=== PATIENT | male | born 1985 | race American Indian/Alaskan Native ===

== ENCOUNTER 2017-05-07 15:37 | Inpatient (IN) | payer MEDICAID, OTHER ==
[2017-05-07] MEDS ORDERED: Sodium Chloride 0.9% 1,000 ML IV ONE (16:23)
[2017-05-07] MEDS ORDERED: Sodium Chloride 0.9% 1,000 ML ONE (16:33)
[2017-05-07] MEDS ORDERED: Pantoprazole 80 MG in Sodium Chloride 0.9% 100 ML IVP SCH (16:45)
--- NOTE | 2017-05-07 16:45 | C.PDOC ---
History Of Present Illness 31 y/o male presents to ED sent by PMD for low hemoglobin of 7.4 and for evaluation of blood in stool for 2 days. Patient also complaints of dizziness and states he doesn't not feel like himself. Patient reports stomach problems and denies fever, chills, nausea, vomiting, diarrhea or any other complaints at this time. Time Seen by Provider: 05/07/17 16:22 Chief Complaint (Nursing): Abnormal Labs History Per: Patient History/Exam Limitations: no limitations Onset/Duration Of Symptoms: Days Current Symptoms Are (Timing): Still Present Severity: Mild Reports Recently: Treated By A Physician Past Medical History Reviewed: Historical Data, Nursing Documentation, Vital Signs Vital Signs: Last Vital Signs Temp 98.5 F 05/07/17 15:52 Pulse 72 05/07/17 15:52 Resp 20 05/07/17 15:52 BP 135/94 H 05/07/17 15:52 Pulse Ox 100 05/07/17 18:18 - Medical History PMH: No Chronic Diseases Surgical History: No Surg Hx Family History: States: No Known Family Hx - Social History Hx Alcohol Use: No Hx Substance Use: No - Immunization History Hx Tetanus Toxoid Vaccination: No Hx Influenza Vaccination: No Hx Pneumococcal Vaccination: No Review Of Systems Except As Marked, All Systems Reviewed And Found Negative. Constitutional: Negative for: Fever, Chills Gastrointestinal: Positive for: Hematochezia. Negative for: Nausea, Vomiting, Diarrhea Skin: Negative for: Rash Neurological: Positive for: Dizziness Physical Exam - Physical Exam Appears: Non-toxic, No Acute Distress Skin: Normal Color, Warm, No Pale, No Rash Head: Atraumatic Eye(s): bilateral: Normal Inspection Oral Mucosa: Moist Neck: Supple Chest: Symmetrical Cardiovascular: Rhythm Regular Respiratory: Normal Breath Sounds, No Rales, No Rhonchi, No Wheezing Gastrointestinal/Abdominal: Soft, No Tenderness, No Guarding, No Rebound Rectal: Heme Positive, Maroon Stool, No Hemorrhoids Neurological/Psych: Oriented x3, Normal Speech ED Course And Treatment - Laboratory Results Result Diagrams: 05/07/17 17:11 05/07/17 17:11 Lab Interpretation: Abnormal ECG: Interpreted By Me ECG Rhythm: Sinus Rhythm ECG Interpretation: No Acute Changes Rate From EC O2 Sat by Pulse Oximetry: 100 (RA) Pulse Ox Interpretation: Normal Progress Note: Treated with IVF NSS, Protonics and protonics drip Reassessment Condition: Unchanged - Physician Consult Information Physician Contacted: Davin Curran Outcome Of Conversation: admit Medical Decision Making Medical Decision Making: Plan: * labs * Protonix drip Disposition Discussed With Dr.: Davin Curran Doctor Will See Patient In The: Hospital - Disposition Disposition: HOSPITALIZED Disposition Time: 18:00 Condition: STABLE Forms: [facility] (Nepali) - POA Present On Arrival: None - Clinical Impression Clinical Impression: Anemia, GI bleeding - Scribe Statement The provider has reviewed the documentation as recorded by the Scribe Joycelyn Herrera All medical record entries made by the Scribe were at my direction and personally dictated by me. I have reviewed the chart and agree that the record accurately reflects my personal performance of the history, physical exam, medical decision making, and the department course for this patient. I have also personally directed, reviewed, and agree with the discharge instructions and disposition. Decision To Admit - Pt Status Changed To: Hospital Disposition Of: Inpatient - Admit Certification Admit to Inpatient:: After my assessment, the patient will require hospitalization for at least two midnights. This is because of the severity of symptoms shown, intensity of services needed, and/or the medical risk in this patient being treated as an outpatient. - InPatient: Physician Admission Certification: I certify that this patient requires 2 or more midnights of care for the following reason:: Anemia. Dizziness. GI Bleeding - . Bed Request Type: Regular Admitting Physician: Davin Curran Patient Diagnosis: Anemia, GI bleeding
[2017-05-07 17:21] LABS: BASO # 0.1 K/uL (0.0-0.2); BASO % 0.7 % (0.0-2.0); EOS # 0.2 K/uL (0.0-0.7); EOS % 3.2 % (0.0-4.0); HEMOGLOBIN 9.4 g/dL (12.0-18.0); LYMPH # 1.3 K/uL (1.0-4.3); MEAN CORPUSCULAR HEMOGLOBIN 30.3 pg (27.0-31.0); MEAN PLATELET VOLUME 8.4 fL (7.2-11.7); MONO # 0.9 K/uL (0.0-0.8); MONO % 11.8 % (0.0-10.0); NEUT % 67.3 % (50.0-75.0); NRBC % 0.1 % (0.0-2.0); RBC 3.12 Mil/uL (4.40-5.90); RED CELL DISTRIBUTION WIDTH 13.8 % (11.5-14.5); WHITE BLOOD COUNT 7.4 K/uL (4.8-10.8)
[2017-05-07 17:27] LABS: INR 1.2
[2017-05-07 17:34] LABS: URINE BACTERIA RARE (<OCC); URINE BILIRUBIN NEGATIVE (NEGATIVE); URINE BLOOD NEGATIVE (NEGATIVE); URINE CLARITY Clear (Clear); URINE COLOR Yellow (YELLOW); URINE GLUCOSE (UA) NORMAL (Normal); URINE LEUKOCYTE ESTERASE NEG Leu/uL (Negative); URINE NITRATE NEGATIVE (NEGATIVE); URINE PROTEIN NEGATIVE (NEGATIVE); URINE UROBILINOGEN NORMAL mg/dL (0.2-1.0)
[2017-05-07 17:53] LABS: ALBUMIN 3.7 g/dL (3.5-5.0)
[2017-05-07 17:55] LABS: GFR AFRICAN-AMERICAN > 60; GFR NON-AFRICAN AMERICAN > 60
[2017-05-07 17:56] LABS: ALB/GLOB RATIO 1.6 (1.0-2.1); ALT/SGPT 30 U/L (21-72); AST/SGOT 23 U/L (17-59); BLOOD UREA NITROGEN 15 mg/dL (9-20); CALCIUM 8.4 mg/dl (8.6-10.4)
[2017-05-07] MEDS: Pantoprazole 80 MG in Sodium Chloride 0.9% 100 ML IVPB SCH (18:11)
[2017-05-07] MEDS ORDERED: Sodium Chloride 0.9% 1,000 ML IV SCH (18:45)
--- NOTE | 2017-05-07 19:58 | CP.PCM.HP ---
<Orlando Frances - Last Filed: 05/07/17 20:06> History of Present Illness - History of Present Illness History of Present Illness: PGY-1 H&P for Dr. Curran This is a 31 year old male with no significant PMHx who presents after being sent by his PMD Dr. Nima Pritchard for evaluation of new onset anemia. Patient had his hemoglobin levels checked and found to be 7.4 by his primary. On his recommendation, patient came to the ED. Patient has noticed dark tarry stools beginning on Friday05/02/17. This has never previously occurred. Patient denies aashish blood in the stool but notes the darker coloration. Patient denies other changes in stool character. Patient has intermittent abdominal pain that is relieved with food. Patient denies excessive use of aspirin or NSAIDs stating that he usually takes Tylenol if necessary but will occasionally take 2 tabs of Advil (400 mg combined). Patient states that yesterday he began experiencing dizziness described as if the room was spinning. He called out of work and laid down. Patient also experienced the same this morning and decided to come for evaluation. Patient states that his usual diet consists of a bagel and coffee for breakfast and chicken with rice for dinner. Patient denies current abdominal pain, fever, chills, n/v/c/d. headache, lightheadedness. PMHx: Denies PSHx: Denies Allergies: NKDA Social: Denies tobacco, alcohol, drug use. 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 Family Hx: Unknown to patient Emergency Contact: Faye Coronado [phone] Code Status: Full code Present on Admission - Present on Admission Any Indicators Present on Admission: No Review of Systems - Constitutional Constitutional: Fatigue, Weakness - EENT Eyes: absent: Change in Vision Ears: absent: Decreased Hearing Nose/Mouth/Throat: absent: Nasal Congestion - Cardiovascular Cardiovascular: absent: Chest Pain, Diaphoresis, Palpitations - Respiratory Respiratory: absent: Cough, Dyspnea, Wheezing - Gastrointestinal Gastrointestinal: Other (dark, tarry stools). absent: Abdominal Pain (not presently at time of encounter), Bloating, Change in Stool Character, Coffee Ground Emesis, Constipation, Diarrhea, Hematemesis, Nausea, Temesmus, Vomiting - Genitourinary Genitourinary: absent: Dysuria - Neurological Neurological: Dizziness (mild presently), Weakness. absent: Headaches Past Patient History - Past Social History Smoking Status: Never Smoked - PSYCHIATRIC Hx Substance Use: No - SURGICAL HISTORY Hx Surgeries: No Meds Allergies/Adverse Reactions: Allergies Allergy/AdvReac Type Severity Reaction Status Date / Time No Known Allergies Allergy Verified 05/07/17 15:55 Physical Exam - Constitutional Appears: No Acute Distress - Head Exam Head Exam: ATRAUMATIC, NORMAL INSPECTION, NORMOCEPHALIC - Eye Exam Eye Exam: EOMI, PERRL - ENT Exam ENT Exam: Mucous Membranes Moist - Respiratory Exam Respiratory Exam: Clear to Auscultation Bilateral. absent: Rales, Rhonchi, Wheezes - Cardiovascular Exam Cardiovascular Exam: REGULAR RHYTHM, +S1, +S2. absent: Diastolic murmur, Systolic Murmur - GI/Abdominal Exam GI & Abdominal Exam: Normal Bowel Sounds, Soft. absent: Distended, Guarding, Rebound, Tenderness - Neurological Exam Neurological exam: Alert, CN II-XII Intact, Oriented x3 - Skin Skin Exam: Dry, Intact, Normal Color, Warm Results - Vital Signs Recent Vital Signs: Last Vital Signs Temp 98.5 F 05/07/17 15:52 Pulse 72 05/07/17 15:52 Resp 20 05/07/17 15:52 BP 135/94 H 05/07/17 15:52 Pulse Ox 100 05/07/17 18:35 - Labs Result Diagrams: 05/07/17 17:11 05/07/17 17:11 Assessment & Plan - Assessment and Plan (Free Text) Plan: GI bleed Protonix drip at 8 cc/hr Repeat CBC at midnight. If hemoglobin is less than 8.1, will transfuse 1 unit of PRBCs Consulted GI Dr. Hull, help appreciated Spoken Dr. Hull over the phone. He recommends: -D5W 100 c/hr -Clear Liquid Diet But then NPO after midnight -AM labs including CBC and chem panel Anemia Patient type and crossed by the ED and type and screen ordered Repeat CBC at midnight 05/08/17 If found to be below 8.1, will transfuse 1 unit of PRBCs Iron studies for AM: total iron, TIBC, ferritin, %saturation Prophylactic Measures SCDs Potassium replaced with Kdurr 40 mEq - Date & Time Date: 05/07/17 Time: 06:30 Decision To Admit - Pt Status Changed To: Hospital Disposition Of: Inpatient - Admit Certification Admit to Inpatient:: After my assessment, the patient will require hospitalization for at least two midnights. This is because of the severity of symptoms shown, intensity of services needed, and/or the medical risk in this patient being treated as an outpatient. - InPatient: Physician Admission Certification:: Patient will need to be monitored on telemetry for at least 2 midnights - . Bed Request Type: Telemetry <CurranDavin mojica - Last Filed: 05/08/17 07:39> Results - Vital Signs Recent Vital Signs: Last Vital Signs Temp 97.3 F L 05/08/17 06:15 Pulse 71 05/08/17 06:15 Resp 20 05/08/17 06:15 BP 116/64 05/08/17 06:15 Pulse Ox 100 05/08/17 04:00 - Labs Result Diagrams: 05/08/17 01:05 05/07/17 17:11 Labs: Laboratory Results - last 24 hr 05/08/17 01:05 WBC 6.6 RBC 2.62 L Hgb 7.9 L Hct 23.5 L MCV 89.5 MCH 30.3 MCHC 33.8 RDW 13.7 Plt Count 171 MPV 8.3 Neut % (Auto) 61.8 Lymph % (Auto) 21.2 Chambers % (Auto) 11.4 H Eos % (Auto) 4.9 H Baso % (Auto) 0.7 Neut # 4.1 Lymph # 1.4 Chambers # 0.8 Eos # 0.3 Baso # 0.0 Attending/Attestation - Attestation I have personally seen and examined this patient.: Yes I have fully participated in the care of the patient.: Yes I have reviewed all pertinent clinical information: Yes Notes (Text): Medical attending: Patient was seen and examined by me, agree with the above note by certified medical asst. He was seen in ER bed 1. As reported above in the resident note patient was sent in by his PMD due to anemia and concern for upper GI bleed. He has been feeling very fatigued and weak for the past few days, we well recheck a another CBC tonight as well as a type and screen just in case he does need to be transfused. As of right now he is not tachycardic and blood pressure stable. Nevertheless will be monitored on the telemetry floor. He's been placed on a Protonix drip, IVF and will have to notify GI for evaluation He's never had bleeding such as this before. He denied drinking alcohol, and he denied excessive use of any NSAIDs when we asked he also further denied any other medical history as well. Thank you very much, Davin Curran
[2017-05-07] MEDS: Potassium Ch 20mEq in D5W 1,000 ML IV SCH (20:30)
[2017-05-07] MEDS ORDERED: Potassium Chloride 20 mEq ER Tab PO STA (23:49)
[2017-05-08 01:16] LABS: BASO % 0.7 % (0.0-2.0); EOS # 0.3 K/uL (0.0-0.7); EOS % 4.9 % (0.0-4.0); HEMOGLOBIN 7.9 g/dL (12.0-18.0); LYMPH # 1.4 K/uL (1.0-4.3); LYMPH % 21.2 % (20.0-40.0); MEAN CELL VOLUME 89.5 fL (80.0-94.0); MEAN CORPUSCULAR HEMOGLOBIN 30.3 pg (27.0-31.0); MEAN CORPUSCULAR HGB CONC 33.8 g/dL (33.0-37.0); MEAN PLATELET VOLUME 8.3 fL (7.2-11.7); MONO # 0.8 K/uL (0.0-0.8); MONO % 11.4 % (0.0-10.0); NEUT # 4.1 K/uL (1.8-7.0); NEUT % 61.8 % (50.0-75.0); NRBC % 0.1 % (0.0-2.0); RBC 2.62 Mil/uL (4.40-5.90); RED CELL DISTRIBUTION WIDTH 13.7 % (11.5-14.5); WHITE BLOOD COUNT 6.6 K/uL (4.8-10.8)
[2017-05-08] MEDS: Pantoprazole 80 MG in Sodium Chloride 0.9% 100 ML IVPB SCH (03:47)
[2017-05-08] MEDS: Potassium Ch 20mEq in D5W 1,000 ML IV SCH ×2 (07:30→17:54)
[2017-05-08 07:37] LABS: BASO % 0.7 % (0.0-2.0); EOS # 0.3 K/uL (0.0-0.7); EOS % 4.6 % (0.0-4.0); HEMOGLOBIN 8.9 g/dL (12.0-18.0); LYMPH # 1.1 K/uL (1.0-4.3); MEAN CELL VOLUME 89.6 fL (80.0-94.0); MEAN CORPUSCULAR HEMOGLOBIN 30.4 pg (27.0-31.0); MEAN CORPUSCULAR HGB CONC 33.9 g/dL (33.0-37.0); MEAN PLATELET VOLUME 8.2 fL (7.2-11.7); MONO # 0.6 K/uL (0.0-0.8); MONO % 10.9 % (0.0-10.0); NEUT # 3.8 K/uL (1.8-7.0); NEUT % 65.8 % (50.0-75.0); NRBC % 0.1 % (0.0-2.0); RBC 2.95 Mil/uL (4.40-5.90); RED CELL DISTRIBUTION WIDTH 13.5 % (11.5-14.5); WHITE BLOOD COUNT 5.8 K/uL (4.8-10.8)
[2017-05-08 07:48] LABS: IRON 65 ug/dL (49-181)
[2017-05-08 07:50] LABS: ALB/GLOB RATIO 1.4 (1.0-2.1); ALBUMIN 2.7 g/dL (3.5-5.0); ALT/SGPT 29 U/L (21-72); AST/SGOT 22 U/L (17-59); BLOOD UREA NITROGEN 10 mg/dL (9-20); CALCIUM 7.7 mg/dl (8.6-10.4); GFR AFRICAN-AMERICAN > 60; GFR NON-AFRICAN AMERICAN > 60; MAGNESIUM 1.7 mg/dL (1.6-2.3)
[2017-05-08 08:00] LABS: % IRON SATURATION 29 (20-55); TOTAL IRON BINDING CAPACITY 226 ug/dL (250-450)
[2017-05-08 08:25] LABS: FERRITIN 43.1 ng/mL
[2017-05-08] MEDS ORDERED: Potassium Chloride 20 mEq ER Tab PO SCH (10:00)
[2017-05-08] MEDS ORDERED: Propofol 10 mg/ml Inj (20 ML) ONE (11:06)
--- NOTE | 2017-05-08 11:12 | CP.PCM.CON ---
History of Present Illness - History of Present Illness History of Present Illness: 31 yo [place] male admitted with symptomatic anemia from PCP office. Noted to be dizzy and found to have hgb 8.9 in ER. Had black stools since friday of last week. Hgb 7.9 last night and given one unit of PRBC's. Admits to taking ADvil prn for pain. No h;o PUD of Etoh ingestion. No prior bleeding. No surgery or bleeding tendencies. Review of Systems - Cardiovascular Cardiovascular: Lightheadedness. absent: Chest Pain, Dyspnea - Respiratory Respiratory: absent: Dyspnea - Gastrointestinal Gastrointestinal: As Per HPI Past Patient History - Past Medical History & Family History Past Medical History?: No - Past Social History Smoking Status: Never Smoked Alcohol: None Drugs: Denies - CARDIAC Hx Cardiac Disorders: No - PULMONARY Hx Respiratory Disorders: No - NEUROLOGICAL Hx Neurological Disorder: No - HEENT Hx HEENT Problems: No - RENAL Hx Chronic Kidney Disease: No - ENDOCRINE/METABOLIC Hx Endocrine Disorders: No - HEMATOLOGICAL/ONCOLOGICAL Hx AIDS: No Hx Cirrhosis: No Hx Hepatitis A: No Hx Hepatitis B: No Hx Hepatitis C: No Hx Human Immunodeficiency Virus (HIV): No - MUSCULOSKELETAL/RHEUMATOLOGICAL Hx Falls: No - GASTROINTESTINAL Hx Gastrointestinal Disorders: No - PSYCHIATRIC Hx Substance Use: No - SURGICAL HISTORY Hx Surgeries: No - ANESTHESIA Hx Anesthesia: No Meds Allergies/Adverse Reactions: Allergies Allergy/AdvReac Type Severity Reaction Status Date / Time No Known Allergies Allergy Verified 05/07/17 15:55 - Medications Medications: Current Medications Pantoprazole Sodium 80 mg/ (Sodium Chloride) 100 mls @ 10 mls/hr IVPB .Q10H [facility] PRN Reason: 8 MG/HR Last Admin: 05/08/17 03:47 Dose: Not Given Potassium Chloride/Dextrose (Potassium Chl 20 Meq In D5w) 1,000 mls @ 100 mls/ hr IV .Q10H [facility] Last Admin: 05/08/17 07:30 Dose: Not Given Pneumococcal Polyvalent Vaccine (Pneumovax 23 Vaccine) 0.5 ml IM .ONCE ONE Stop: 05/09/17 10:01 Physical Exam - Constitutional Appears: No Acute Distress - Head Exam Head Exam: ATRAUMATIC, NORMOCEPHALIC - Eye Exam Eye Exam: EOMI, PERRL - Respiratory Exam Respiratory Exam: NORMAL BREATHING PATTERN - Cardiovascular Exam Cardiovascular Exam: REGULAR RHYTHM, +S1 - GI/Abdominal Exam GI & Abdominal Exam: Normal Bowel Sounds, Soft. absent: Mass, Rebound, Tenderness - Rectal Exam Rectal Exam: Black Stool - Extremities Exam Extremities exam: Positive for: normal inspection - Neurological Exam Neurological exam: Alert, CN II-XII Intact, Oriented x3 - Psychiatric Exam Psychiatric exam: Normal Affect, Normal Mood - Skin Skin Exam: Dry, Warm Results - Vital Signs Recent Vital Signs: Last Vital Signs Temp 98.2 F 05/08/17 11:05 Pulse 68 05/08/17 11:05 Resp 20 05/08/17 11:05 BP 160/88 H 05/08/17 11:05 Pulse Ox 100 05/08/17 11:05 - Labs Result Diagrams: 05/08/17 07:26 05/08/17 07:26 Labs: Laboratory Results - last 24 hr 05/08/17 05/08/17 05/08/17 01:05 07:26 07:26 WBC 6.6 RBC 2.62 L Hgb 7.9 L Hct 23.5 L MCV 89.5 MCH 30.3 MCHC 33.8 RDW 13.7 Plt Count 171 MPV 8.3 Neut % (Auto) 61.8 Lymph % (Auto) 21.2 Gooding % (Auto) 11.4 H Eos % (Auto) 4.9 H Baso % (Auto) 0.7 Neut # 4.1 Lymph # 1.4 Gooding # 0.8 Eos # 0.3 Baso # 0.0 Sodium 134 Potassium 3.5 L Chloride 104 Carbon Dioxide 26 Anion Gap 8 L BUN 10 Creatinine 0.8 Est GFR ( Amer) > 60 Est GFR (Non-Af Amer) > 60 Random Glucose 86 Calcium 7.7 L Phosphorus 3.0 Magnesium 1.7 Iron 65 TIBC 226 L % Saturation 29 Ferritin 43.1 Total Bilirubin 0.4 AST 22 ALT 29 Alkaline Phosphatase 30 L D Total Protein 4.7 L Albumin 2.7 L D Globulin 1.9 L Albumin/Globulin Ratio 1.4 05/08/17 07:26 WBC 5.8 RBC 2.95 L Hgb 8.9 L Hct 26.4 L MCV 89.6 MCH 30.4 MCHC 33.9 RDW 13.5 Plt Count 178 MPV 8.2 Neut % (Auto) 65.8 Lymph % (Auto) 18.0 L [place] % (Auto) 10.9 H Eos % (Auto) 4.6 H Baso % (Auto) 0.7 Neut # 3.8 Lymph # 1.1 Gooding # 0.6 Eos # 0.3 Baso # 0.0 Sodium Potassium Chloride Carbon Dioxide Anion Gap BUN Creatinine Est GFR ( Amer) Est GFR (Non-Af Amer) Random Glucose Calcium Phosphorus Magnesium Iron TIBC % Saturation Ferritin Total Bilirubin AST ALT Alkaline Phosphatase Total Protein Albumin Globulin Albumin/Globulin Ratio Assessment & Plan (1) Melena Assessment and Plan: r/o PUD due to Advil use, gastritis, reflux disease, AVM or other LGI source Transfuse to hgb>9 due to symptomatic anemia and near syncope IV PRotonix EGD this am Pending results will need colonoscopy as well which can likely be done as out patient via the clinic. Case discussed with medical physiologist while in ED last pm. Agree with his assessment. Status: Acute (2) Iron deficiency anemia due to chronic blood loss Assessment and Plan: as above Status: Acute
[2017-05-08] MEDS: Pantoprazole 40 mg EC Tab PO SCH (12:30)
--- NOTE | 2017-05-08 14:58 | RAD ---
Chest x-ray single frontal view History: Preoperative evaluation. Comparison: None available. Findings: Mild venous congestion. Mild right hilar prominence. Nodular density in the right mid lung zone likely represents prominent vessel on end. Heart size within normal limits. Impression: No focal infiltrate or effusion. Mild venous congestion. Mild right hilar prominence. Nodular density in the right mid lung zone likely represents prominent vessel on end.
[2017-05-08 16:51] LABS: BASO # 0.1 K/uL (0.0-0.2); BASO % 0.8 % (0.0-2.0); EOS # 0.3 K/uL (0.0-0.7); EOS % 4.6 % (0.0-4.0); HEMOGLOBIN 9.1 g/dL (12.0-18.0); LYMPH # 1.3 K/uL (1.0-4.3); LYMPH % 19.5 % (20.0-40.0); MEAN CELL VOLUME 89.5 fL (80.0-94.0); MEAN CORPUSCULAR HEMOGLOBIN 30.1 pg (27.0-31.0); MEAN CORPUSCULAR HGB CONC 33.6 g/dL (33.0-37.0); MEAN PLATELET VOLUME 8.1 fL (7.2-11.7); MONO # 0.6 K/uL (0.0-0.8); MONO % 9.7 % (0.0-10.0); NEUT # 4.2 K/uL (1.8-7.0); NEUT % 65.4 % (50.0-75.0); NRBC % 0.3 % (0.0-2.0); RBC 3.04 Mil/uL (4.40-5.90); RED CELL DISTRIBUTION WIDTH 13.5 % (11.5-14.5); WHITE BLOOD COUNT 6.5 K/uL (4.8-10.8)
--- NOTE | 2017-05-08 16:58 | CP.PCM.PN ---
<Orlando Frances - Last Filed: 05/08/17 17:22> Subjective - Date & Time of Evaluation Date of Evaluation: 05/08/17 Time of Evaluation: 07:10 - Subjective Subjective: PGY-[address] Curran Patient seen and examined at bedside. Patient reports that he feels well with no dizziness or lightheadedness at the moment. Patient was just transfused 1 L of PRBCs during the night due to hemoglobin drop. Patient denies fevers, chills , headache, chest pain, SOB, abdominal pain, dysuria. Objective - Vital Signs/Intake and Output Vital Signs (last 24 hours): Temp Pulse Resp BP Pulse Ox 97.4 F L 66 18 97/58 L 100 05/08/17 15:15 05/08/17 15:15 05/08/17 15:15 05/08/17 15:15 05/08/17 15:15 Intake and Output: 05/08/17 05/08/17 06:59 18:59 Intake Total 375 1725 Balance 375 1725 - Medications Medications: Current Medications Potassium Chloride/Dextrose (Potassium Chl 20 Meq In D5w) 1,000 mls @ 100 mls/ hr IV .Q10H [facility] Last Admin: 05/08/17 07:30 Dose: Not Given Pantoprazole Sodium (Protonix Ec Tab) 40 mg PO DAILY [facility] Last Admin: 05/08/17 12:30 Dose: 40 mg Pneumococcal Polyvalent Vaccine (Pneumovax 23 Vaccine) 0.5 ml IM .ONCE ONE Stop: 05/09/17 10:01 - Labs Labs: 05/08/17 16:44 05/08/17 07:26 PT 13.0 SECONDS (9.7-12.2) H 05/07/17 17:11 INR 1.2 05/07/17 17:11 - Constitutional Appears: No Acute Distress - Head Exam Head Exam: ATRAUMATIC, NORMAL INSPECTION, NORMOCEPHALIC - Eye Exam Eye Exam: EOMI, PERRL - ENT Exam ENT Exam: Mucous Membranes Moist - Respiratory Exam Respiratory Exam: Clear to Ausculation Bilateral. absent: Rales, Rhonchi, Wheezes - Cardiovascular Exam Cardiovascular Exam: REGULAR RHYTHM, +S1, +S2 - GI/Abdominal Exam GI & Abdominal Exam: Soft, Normal Bowel Sounds. absent: Tenderness - Neurological Exam Neurological Exam: Alert, Awake, Oriented x3 - Skin Skin Exam: Dry, Intact, Normal Color, Warm Assessment and Plan - Assessment and Plan (Free Text) Plan: GI bleed Protonix 40 mg IV daily Repeat CBC in the AM. If hemoglobin is less than 9, will transfuse 1 unit of PRBCs Consulted GI Dr. Hull, tabitha weaver EGD performed this morning revealing gastritis one non-bleeding duodenal ulcer found in the duodenal bulb 10 mm in its largest dimension. Upon discharge, patient will need to take Prilosec 20 mg PO daily for 8 weeks and to avoid aspirin and NSAIDs. Anemia Patient type and crossed by the ED and type and screen ordered Repeat CBC in the AM If found to be below 9, will transfuse 1 unit of PRBCs Iron studies reveal 65 iron, 226 TIBC (low), %saturation 29, ferritin 43.1 Prophylactic Measures SCDs Potassium replaced with Kdurr 20 mEq Patient states that he was brought food earlier and was able to tolerate it. So we will put him on a soft diet for now. Likely discharge in the AM pending morning labs. Case discussed with Dr. Bina Frances PGY-1 <Davin Curran H - Last Filed: 05/08/17 18:06> Objective - Vital Signs/Intake and Output Vital Signs (last 24 hours): Temp Pulse Resp BP Pulse Ox 97.4 F L 66 18 97/58 L 100 05/08/17 15:15 05/08/17 15:15 05/08/17 15:15 05/08/17 15:15 05/08/17 15:15 Intake and Output: 05/08/17 05/08/17 06:59 18:59 Intake Total 375 1725 Balance 375 1725 - Medications Medications: Current Medications Potassium Chloride/Dextrose (Potassium Chl 20 Meq In D5w) 1,000 mls @ 100 mls/ hr IV .Q10H [facility] Last Admin: 05/08/17 17:54 Dose: 100 mls/hr Pantoprazole Sodium (Protonix Ec Tab) 40 mg PO DAILY [facility] Last Admin: 05/08/17 12:30 Dose: 40 mg Pneumococcal Polyvalent Vaccine (Pneumovax 23 Vaccine) 0.5 ml IM .ONCE ONE Stop: 05/09/17 10:01 - Labs Labs: 05/08/17 16:44 05/08/17 07:26 PT 13.0 SECONDS (9.7-12.2) H 05/07/17 17:11 INR 1.2 05/07/17 17:11 Attending/Attestation - Attestation I have personally seen and examined this patient.: Yes I have fully participated in the care of the patient.: Yes I have reviewed all pertinent clinical information, including history, physical exam and plan: Yes Notes (Text): 05/08/17 18:04 Medical attending: Patient was seen and examined by me, agrees the above note by medical record technician. When we saw the patient this was in the morning before he had the EGD. At the time we saw him he was not under any acute distress. He reported that overnight he did okay. He did get 1 unit of packed red blood cells overnight after we rechecked hemoglobin and noted that it did decrease. He explained to us that he did have a bowel movement it did look dark to him Today after the EGD the report suggested that he did have non-bleeding duodenal ulcer found, he's given need to avoid things like aspirin and NSAIDs. He's currently on Protonix at this time So at this time regarding continue to monitor the CBC in case he'll need another blood transfusion. Thank you very much, Davin Curran
--- NOTE | 2017-05-08 22:17 | CP.PCM.PN ---
Subjective - Date & Time of Evaluation Date of Evaluation: 05/08/17 Time of Evaluation: 22:14 - Subjective Subjective: ADDENDUM: EGD showed a cratered duodenal ulcer 10mm in diameter in inferior margin of duodenum just beyond pylorus. No evidence of bleeding or stigmata of bleeding. Biopsy of antrum taken to r/o H pylori. If no further bleeding and H/H is stable would discharge on Prilosec/Omeprazole 20mg daily for 8 weeks. F/U with me in office where I will give him samples of Pylera if H pylor is + and discussed office discounted fee schedule. If not treatment can be facilitated with follow up in the [facility] [place] [place] [facility]. Advised to avoid all NSAID's at this time. Able to resume work next week if no longer dizzy and weak Repeat CBC. Will follow as needed. Thank you. Findings and recommendations discussed with Computer Architect by telephone. Objective - Vital Signs/Intake and Output Vital Signs (last 24 hours): Temp Pulse Resp BP Pulse Ox 97.4 F L 66 18 97/58 L 100 05/08/17 15:15 05/08/17 15:15 05/08/17 15:15 05/08/17 15:15 05/08/17 15:15 Intake and Output: 05/08/17 05/09/17 18:59 06:59 Intake Total 1725 Balance 1725 - Medications Medications: Current Medications Potassium Chloride/Dextrose (Potassium Chl 20 Meq In D5w) 1,000 mls @ 100 mls/ hr IV .Q10H [facility] Last Admin: 05/08/17 17:54 Dose: 100 mls/hr Pantoprazole Sodium (Protonix Ec Tab) 40 mg PO DAILY [facility] Last Admin: 05/08/17 12:30 Dose: 40 mg Pneumococcal Polyvalent Vaccine (Pneumovax 23 Vaccine) 0.5 ml IM .ONCE ONE Stop: 05/09/17 10:01 - Labs Labs: 05/08/17 16:44 05/08/17 07:26 PT 13.0 SECONDS (9.7-12.2) H 05/07/17 17:11 INR 1.2 05/07/17 17:11 Assessment and Plan (1) Melena Status: Acute (2) Iron deficiency anemia due to chronic blood loss Status: Acute
[2017-05-09] MEDS: Potassium Ch 20mEq in D5W 1,000 ML IV SCH ×2 (02:42→12:30)
[2017-05-09 06:17] LABS: BASO % 0.8 % (0.0-2.0); EOS # 0.4 K/uL (0.0-0.7); EOS % 6.8 % (0.0-4.0); HEMOGLOBIN 9.3 g/dL (12.0-18.0); LYMPH # 1.1 K/uL (1.0-4.3); LYMPH % 19.2 % (20.0-40.0); MEAN CELL VOLUME 89.5 fL (80.0-94.0); MEAN CORPUSCULAR HGB CONC 33.5 g/dL (33.0-37.0); MEAN PLATELET VOLUME 8.2 fL (7.2-11.7); MONO # 0.7 K/uL (0.0-0.8); MONO % 12.3 % (0.0-10.0); NEUT # 3.5 K/uL (1.8-7.0); NEUT % 60.9 % (50.0-75.0); NRBC % 0.1 % (0.0-2.0); RBC 3.11 Mil/uL (4.40-5.90); RED CELL DISTRIBUTION WIDTH 13.6 % (11.5-14.5); WHITE BLOOD COUNT 5.7 K/uL (4.8-10.8)
[2017-05-09 06:31] LABS: BLOOD UREA NITROGEN 4 mg/dL (9-20); CALCIUM 7.8 mg/dl (8.6-10.4); GFR AFRICAN-AMERICAN > 60; GFR NON-AFRICAN AMERICAN > 60
[2017-05-09 07:53] VITALS: BP 104/62; PULSE 76; RESP 18; TEMP 97.7; O2SAT 99
[2017-05-09] MEDS: Pantoprazole 40 mg EC Tab PO SCH (09:21)
[2017-05-09] MEDS ORDERED: Pneumococcal 23-Valent Vaccine IM ONE (10:00)
--- NOTE | 2017-05-09 10:47 | CP.PCM.DIS ---
Addendum entered and electronically signed by Orlando Frances DO 05/09/17 14:09: After discharge order was placed, biopsy report from the EGD returned positive for H. pylori. Attending was made aware and patient was still in the hospital. We decided to discharge him on the following three medications: Amoxicillin 500 mg PO BID for 10 days. Clarithromycin 500 mg PO BID for 10 days. Esomeprazole 20 mg PO BID for 10 days. Discharge instructions were updated and patient made aware. Original Note: <Orlando Frances - Last Filed: 05/09/17 11:08> Provider - Provider Date of Admission: 05/07/17 17:51 Attending physician: Davin Curran DO Time Spent in preparation of Discharge (in minutes): 32 Diagnosis - Discharge Diagnosis (1) Duodenal ulcer Status: Acute (2) Anemia Status: Acute (3) GI bleeding Status: Acute (4) Melena Status: Acute (5) Prophylactic measure Status: Acute Hospital Course - Lab Results Lab Results: Most Recent Lab Values WBC 5.7 K/uL (4.8-10.8) 05/09/17 06:04 RBC 3.11 Mil/uL (4.40-5.90) L 05/09/17 06:04 Hgb 9.3 g/dL (12.0-18.0) L 05/09/17 06:04 Hct 27.8 % (35.0-51.0) L 05/09/17 06:04 MCV 89.5 fL (80.0-94.0) 05/09/17 06:04 MCH 30.0 pg (27.0-31.0) 05/09/17 06:04 MCHC 33.5 g/dL (33.0-37.0) 05/09/17 06:04 RDW 13.6 % (11.5-14.5) 05/09/17 06:04 Plt Count 218 K/uL (130-400) 05/09/17 06:04 MPV 8.2 fL (7.2-11.7) 05/09/17 06:04 Neut % (Auto) 60.9 % (50.0-75.0) 05/09/17 06:04 Lymph % (Auto) 19.2 % (20.0-40.0) L 05/09/17 06:04 Graves % (Auto) 12.3 % (0.0-10.0) H 05/09/17 06:04 Eos % (Auto) 6.8 % (0.0-4.0) H 05/09/17 06:04 Baso % (Auto) 0.8 % (0.0-2.0) 05/09/17 06:04 Neut # 3.5 K/uL (1.8-7.0) 05/09/17 06:04 Lymph # 1.1 K/uL (1.0-4.3) 05/09/17 06:04 Graves # 0.7 K/uL (0.0-0.8) 05/09/17 06:04 Eos # 0.4 K/uL (0.0-0.7) 05/09/17 06:04 Baso # 0.0 K/uL (0.0-0.2) 05/09/17 06:04 PT 13.0 SECONDS (9.7-12.2) H 05/07/17 17:11 INR 1.2 05/07/17 17:11 Sodium 135 mmol/L (132-148) 05/09/17 06:04 Potassium 3.7 mmol/L (3.6-5.2) 05/09/17 06:04 Chloride 102 mmol/L (98-107) 05/09/17 06:04 Carbon Dioxide 27 mmol/L (22-30) 05/09/17 06:04 Anion Gap 10 (10-20) 05/09/17 06:04 BUN 4 mg/dL (9-20) L 05/09/17 06:04 Creatinine 0.9 MG/DL (0.8-1.5) 05/09/17 06:04 Est GFR ( Amer) > 60 05/09/17 06:04 Est GFR (Non-Af Amer) > 60 05/09/17 06:04 Random Glucose 88 mg/dL (75-110) 05/09/17 06:04 Calcium 7.8 mg/dl (8.6-10.4) L 05/09/17 06:04 Phosphorus 3.0 mg/dL (2.5-4.5) 05/08/17 07:26 Magnesium 1.7 mg/dL (1.6-2.3) 05/08/17 07:26 Iron 65 ug/dL (49-181) 05/08/17 07:26 TIBC 226 ug/dL (250-450) L 05/08/17 07:26 % Saturation 29 (20-55) 05/08/17 07:26 Ferritin 43.1 ng/mL 05/08/17 07:26 Total Bilirubin 0.4 mg/dL (0.2-1.3) 05/08/17 07:26 AST 22 U/L (17-59) 05/08/17 07:26 ALT 29 U/L (21-72) 05/08/17 07:26 Alkaline Phosphatase 30 U/L (38-126) L D 05/08/17 07:26 Total Protein 4.7 g/dL (6.3-8.3) L 05/08/17 07:26 Albumin 2.7 g/dL (3.5-5.0) L D 05/08/17 07:26 Globulin 1.9 gm/dL (2.2-3.9) L 05/08/17 07:26 Albumin/Globulin Ratio 1.4 (1.0-2.1) 05/08/17 07:26 Urine Color Yellow (YELLOW) 05/07/17 17:34 Urine Clarity Clear (Clear) 05/07/17 17:34 Urine pH 5.0 (5.0-8.0) 05/07/17 17:34 Ur Specific Mcdonough 1.030 (1.003-1.030) 05/07/17 17:34 Urine Protein Negative mg/dL (NEGATIVE) 05/07/17 17:34 Urine Glucose (UA) Normal mg/dL (Normal) 05/07/17 17:34 Urine Ketones Trace mg/dL (NEGATIVE) 05/07/17 17:34 Urine Blood Negative (NEGATIVE) 05/07/17 17:34 Urine Nitrate Negative (NEGATIVE) 05/07/17 17:34 Urine Bilirubin Negative (NEGATIVE) 05/07/17 17:34 Urine Urobilinogen Normal mg/dL (0.2-1.0) 05/07/17 17:34 Ur Leukocyte Esterase Neg Li/uL (Negative) 05/07/17 17:34 Urine WBC (Auto) 2 /hpf (0-5) 05/07/17 17:34 Urine RBC (Auto) < 1 /hpf (0-3) 05/07/17 17:34 Urine Bacteria Rare (<OCC) 05/07/17 17:34 Blood Type O POSITIVE 05/07/17 17:11 Antibody Screen Negative 05/07/17 17:11 - Hospital Course Hospital Course: On admission: "This is a 31 year old male with no significant PMHx who presents after being sent by his PMD Dr. Nima Pritchard for evaluation of new onset anemia. Patient had his hemoglobin levels checked and found to be 7.4 by his primary. On his recommendation, patient came to the ED. Patient has noticed dark tarry stools beginning on Friday05/02/17. This has never previously occurred. Patient denies aashish blood in the stool but notes the darker coloration. Patient denies other changes in stool character. Patient has intermittent abdominal pain that is relieved with food. Patient denies excessive use of aspirin or NSAIDs stating that he usually takes Tylenol if necessary but will occasionally take 2 tabs of Advil (400 mg combined). Patient states that yesterday he began experiencing dizziness described as if the room was spinning. He called out of work and laid down. Patient also experienced the same this morning and decided to come for evaluation. Patient states that his usual diet consists of a bagel and coffee for breakfast and chicken with rice for dinner. Patient denies current abdominal pain, fever, chills, n/v/c/d. headache, lightheadedness." Hospital Course: Patient admitted for new onset anemia with dark, tarry stools. He was type and crossed, type and screened. GI specialist Dr. Jordan Hull was consulted. Patient was started on protonix drip with fluids and hemoglobin was monitored overnight. Overnight, patient's hemoglobin dropped from 9.4 to 7.9 therefore 1 Unit of PRBCs was provided. Patient's hemoglobin in the morning after transfusion was 8.9 On 05/08/17, patient underwent an EGD performed by Dr. Hull which revealed gastritis one non-bleeding duodenal ulcer found in the duodenal bulb 10 mm in its largest dimension. Patient was able to tolerate diet post-procedure. 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 Upon discharge, patient instructed to take Prilosec 20 mg PO daily for 8 weeks and to avoid aspirin and NSAIDs, caffeine, carbonated beverages, and spicy foods. Patient is to follow with his PMD Dr. Pritchard and with the medical laboratory technicians Dr. Hull. If he is unable to do so, he may follow at the [facility] for his primary care needs as well as their GI clinic. Office and contact information were provided within the discharge instructions. This is a summary of his hospital course. If there are any questions, please refer to the medical records. - Date & Time of H&P Date of H&P: 05/09/17 Time of H&P: 10:00 Discharge Exam - Head Exam Head Exam: ATRAUMATIC, NORMAL INSPECTION, NORMOCEPHALIC - Eye Exam Eye Exam: EOMI, PERRL - ENT Exam ENT Exam: Mucous Membranes Moist - Respiratory Exam Respiratory Exam: Clear to PA & Lateral, NORMAL BREATHING PATTERN. absent: Rales, Rhonchi, Wheezes - Cardiovascular Exam Cardiovascular Exam: REGULAR RHYTHM, +S1, +S2. absent: Diastolic murmur, Systolic Murmur - GI/Abdominal Exam GI & Abdominal Exam: Normal Bowel Sounds, Soft. absent: Distended, Organomegaly , Tenderness - Extremities Exam Extremities exam: pedal pulses present - Neurological Exam Neurological exam: Alert, CN II-XII Intact, Oriented x3 - Skin Skin Exam: Dry, Intact, Normal Color, Warm Discharge Plan - Discharge Medications Prescriptions: Amoxicillin [Amoxil 500 mg Cap] 1,000 mg PO BID 10 Days Clarithromycin [Biaxin Filmtab] 500 mg PO BID #20 tab Esomeprazole Magnesium [Nexium 24Hr] 20 mg PO BID #20 tablet.dr - Follow Up Plan Condition: STABLE Disposition: HOME/ ROUTINE Instructions: Peptic Ulcer (DC), Gastritis (DC), Gastrointestinal Bleeding (DC) , Iron Deficiency Anemia (DC), Upper Endoscopy (DC) Additional Instructions: Avoid Non-steroidal anti-inflammatory drugs (NSAIDs) such as Advil, Motrin, Alieve. If you have a headache, Tylenol is preferred. Avoid caffeine, carbonated beverages, spicy foods as they can worsen stomach and bowel irritation and bleeding. Follow up with Dr. Jordan Hull (the B2B Sales Manager) who performed your procedure. He took a small sample to test for bacteria. See him in his office where he will discuss further treatment options. Return to your primary care provider Dr. Pritchard for follow up within 7-10 days of discharge. If you are unable to see him anymore due to insurance, I have provided the referral information for our [facility] the [facility]. Your hemoglobin (9.3 this morning) which is basically the blood count has been stable after getting the 1 unit blood transfusion and after your procedure (EGD) . Per Dr. Hull, if you are not dizzy or weak next week, you may resume work. Your sample came back showing that you have a certain bacteria that causes and worsens these ulcers. Therefore, we will give you the following 3 prescriptions today: Amoxicillin 500 mg, take 1 by mouth two times a day for 10 days. Clarithromycin 500 mg, take 1 by mouth two times a day for 10 days. Esomeprazole 20 mg, take 1 by mouth two times a day for 10 days. After that, please take Prilosec (also known as Omeprazole) 20mg once a day for 8 weeks. This medication can be purchased over the counter at your local pharmacy. If you have any emergency symptoms such as dizziness, weakness, lightheadedness , fainting, please return to the emergency room. Referrals: [facility] at [facility] [Outside] Jordan Hull MD [Staff Provider] - Nima Pritchard, DNP, CANE FURNITURE MAKER [Advanced Practice Nurse] - <Davin Curran - Last Filed: 05/09/17 16:41> Provider - Provider Date of Admission: 05/07/17 17:51 Attending physician: Davin Curran, DO Hospital Course - Lab Results Lab Results: Most Recent Lab Values WBC 5.7 K/uL (4.8-10.8) 05/09/17 06:04 RBC 3.11 Mil/uL (4.40-5.90) L 05/09/17 06:04 Hgb 9.3 g/dL (12.0-18.0) L 05/09/17 06:04 Hct 27.8 % (35.0-51.0) L 05/09/17 06:04 MCV 89.5 fL (80.0-94.0) 05/09/17 06:04 MCH 30.0 pg (27.0-31.0) 05/09/17 06:04 MCHC 33.5 g/dL (33.0-37.0) 05/09/17 06:04 RDW 13.6 % (11.5-14.5) 05/09/17 06:04 Plt Count 218 K/uL (130-400) 05/09/17 06:04 MPV 8.2 fL (7.2-11.7) 05/09/17 06:04 Neut % (Auto) 60.9 % (50.0-75.0) 05/09/17 06:04 Lymph % (Auto) 19.2 % (20.0-40.0) L 05/09/17 06:04 Graves % (Auto) 12.3 % (0.0-10.0) H 05/09/17 06:04 Eos % (Auto) 6.8 % (0.0-4.0) H 05/09/17 06:04 Baso % (Auto) 0.8 % (0.0-2.0) 05/09/17 06:04 Neut # 3.5 K/uL (1.8-7.0) 05/09/17 06:04 Lymph # 1.1 K/uL (1.0-4.3) 05/09/17 06:04 Graves # 0.7 K/uL (0.0-0.8) 05/09/17 06:04 Eos # 0.4 K/uL (0.0-0.7) 05/09/17 06:04 Baso # 0.0 K/uL (0.0-0.2) 05/09/17 06:04 PT 13.0 SECONDS (9.7-12.2) H 05/07/17 17:11 INR 1.2 05/07/17 17:11 Sodium 135 mmol/L (132-148) 05/09/17 06:04 Potassium 3.7 mmol/L (3.6-5.2) 05/09/17 06:04 Chloride 102 mmol/L (98-107) 05/09/17 06:04 Carbon Dioxide 27 mmol/L (22-30) 05/09/17 06:04 Anion Gap 10 (10-20) 05/09/17 06:04 BUN 4 mg/dL (9-20) L 05/09/17 06:04 Creatinine 0.9 MG/DL (0.8-1.5) 05/09/17 06:04 Est GFR ( Amer) > 60 05/09/17 06:04 Est GFR (Non-Af Amer) > 60 05/09/17 06:04 Random Glucose 88 mg/dL (75-110) 05/09/17 06:04 Calcium 7.8 mg/dl (8.6-10.4) L 05/09/17 06:04 Phosphorus 3.0 mg/dL (2.5-4.5) 05/08/17 07:26 Magnesium 1.7 mg/dL (1.6-2.3) 05/08/17 07:26 Iron 65 ug/dL (49-181) 05/08/17 07:26 TIBC 226 ug/dL (250-450) L 05/08/17 07:26 % Saturation 29 (20-55) 05/08/17 07:26 Ferritin 43.1 ng/mL 05/08/17 07:26 Total Bilirubin 0.4 mg/dL (0.2-1.3) 05/08/17 07:26 AST 22 U/L (17-59) 05/08/17 07:26 ALT 29 U/L (21-72) 05/08/17 07:26 Alkaline Phosphatase 30 U/L (38-126) L D 05/08/17 07:26 Total Protein 4.7 g/dL (6.3-8.3) L 05/08/17 07:26 Albumin 2.7 g/dL (3.5-5.0) L D 05/08/17 07:26 Globulin 1.9 gm/dL (2.2-3.9) L 05/08/17 07:26 Albumin/Globulin Ratio 1.4 (1.0-2.1) 05/08/17 07:26 Urine Color Yellow (YELLOW) 05/07/17 17:34 Urine Clarity Clear (Clear) 05/07/17 17:34 Urine pH 5.0 (5.0-8.0) 05/07/17 17:34 Ur Specific Mcdonough 1.030 (1.003-1.030) 05/07/17 17:34 Urine Protein Negative mg/dL (NEGATIVE) 05/07/17 17:34 Urine Glucose (UA) Normal mg/dL (Normal) 05/07/17 17:34 Urine Ketones Trace mg/dL (NEGATIVE) 05/07/17 17:34 Urine Blood Negative (NEGATIVE) 05/07/17 17:34 Urine Nitrate Negative (NEGATIVE) 05/07/17 17:34 Urine Bilirubin Negative (NEGATIVE) 05/07/17 17:34 Urine Urobilinogen Normal mg/dL (0.2-1.0) 05/07/17 17:34 Ur Leukocyte Esterase Neg Li/uL (Negative) 05/07/17 17:34 Urine WBC (Auto) 2 /hpf (0-5) 05/07/17 17:34 Urine RBC (Auto) < 1 /hpf (0-3) 05/07/17 17:34 Urine Bacteria Rare (<OCC) 05/07/17 17:34 Blood Type O POSITIVE 05/07/17 17:11 Antibody Screen Negative 05/07/17 17:11 Attending/Attestation - Attestation I have personally seen and examined this patient.: Yes I have fully participated in the care of the patient.: Yes I have reviewed all pertinent clinical information, including history, physical exam and plan: Yes Notes (Text): Medical Attending: Patient was seen and examined by me. Agree with the above note by the resident. The patient reported feeling well overnight. He did have a BM and the color he reports was better than before. Hgb this morning was also stable as well. HR and BP were ok. Later in the day the biopsy report returned showing H Pylori , so will discharge with triple therapy of Amoxicillin, Clarithromycin and also Omeprazole for 10 days. He knows he has to follow up with GI and also his PMD. Also avoid excessive caffine intake thank you Davin Curran
== END 2017-05-09 15:00 | disposition home or self-care (01) | DRG 379 ==
LOC: C.ER 15:37 → C.9E 17:51 → C.6T 05-08 00:44
PROVIDERS: ADMIT Hospitalist; ATTEND Hospitalist
PROC: 30233N1 Transfusion of Nonautologous Red Blood Cells into Peripheral Vein, Percutaneous Approach (ICD-10-PCS; 2017-05-08)
PROC: 0DB68ZX Excision of Stomach, Via Natural or Artificial Opening Endoscopic, Diagnostic (ICD-10-PCS; principal; 2017-05-08 11:04)
DX: K26.4 Chronic or unspecified duodenal ulcer with hemorrhage (principal); D50.0 Iron deficiency anemia secondary to blood loss (chronic); K29.70 Gastritis, unspecified, without bleeding

== ENCOUNTER 2017-12-29 10:55 | Inpatient (IN) | payer MEDICAID, OTHER ==
[2017-12-29 13:02] LABS: BASO # 0.1 K/uL (0.0-0.2); BASO % 0.5 % (0.0-2.0); EOS # 0.1 K/uL (0.0-0.7); EOS % 0.6 % (0.0-4.0); LYMPH # 0.8 K/uL (1.0-4.3); LYMPH % 6.1 % (20.0-40.0); MEAN CELL VOLUME 88.2 fL (80.0-94.0); MEAN CORPUSCULAR HEMOGLOBIN 30.4 pg (27.0-31.0); MEAN CORPUSCULAR HGB CONC 34.4 g/dL (33.0-37.0); MEAN PLATELET VOLUME 7.9 fL (7.2-11.7); MONO # 2.1 K/uL (0.0-0.8); MONO % 15.4 % (0.0-10.0); NEUT # 10.3 K/uL (1.8-7.0); NEUT % 77.4 % (50.0-75.0); PLATELET COUNT 308 K/uL (130-400); RBC 5.12 Mil/uL (4.40-5.90); RED CELL DISTRIBUTION WIDTH 12.4 % (11.5-14.5)
[2017-12-29 13:04] LABS: WHITE BLOOD COUNT 13.4 K/uL (4.8-10.8)
[2017-12-29 13:05] LABS: HEMOGLOBIN 15.6 g/dL (12.0-18.0)
[2017-12-29 13:17] LABS: ALBUMIN 4.2 g/dL (3.5-5.0); ALT/SGPT 21 U/L (21-72); AST/SGOT 23 U/L (17-59); BLOOD UREA NITROGEN 11 mg/dL (9-20); CALCIUM 9.3 mg/dl (8.6-10.4); GFR AFRICAN-AMERICAN > 60; GFR NON-AFRICAN AMERICAN > 60
--- NOTE | 2017-12-29 13:28 | RAD ---
HISTORY: Hemoptysis COMPARISON: No prior. TECHNIQUE: Chest PA and lateral FINDINGS: LUNGS: There is a right upper lobe infiltrate surrounding a central area of cavitation. PLEURA: No significant pleural effusion identified. No pneumothorax apparent. CARDIOVASCULAR: Normal. OSSEOUS STRUCTURES: No significant abnormalities. VISUALIZED UPPER ABDOMEN: Normal. OTHER FINDINGS: None. IMPRESSION: Right upper lobe infiltrate surrounding a central cavitation.
[2017-12-29 13:38] LABS: URINE BILIRUBIN NEGATIVE (NEGATIVE); URINE BLOOD NEGATIVE (NEGATIVE); URINE CLARITY Clear (Clear); URINE COLOR Yellow (YELLOW); URINE GLUCOSE (UA) NORMAL (Normal); URINE LEUKOCYTE ESTERASE NEG Leu/uL (Negative); URINE PROTEIN 1+ mg/dL (NEGATIVE)
--- NOTE | 2017-12-29 13:52 | C.PDOC ---
History Of Present Illness 32 year old male with no significant PMHx presents to the ED for evaluation of hemoptysis for the past 3 days. Patient is originally from [facility] has been living in the [facility] for the past 17 years. Patient's last visit to [facility] was 1 year ago and he stayed there for 2 months. Patient denies feeling sick, signs of URI symptoms. Patient denies fever, chills, SOB, CP, nausea, vomit, diarrhea. Time Seen by Provider: 12/29/17 11:55 Chief Complaint (Nursing): Cough, Cold, Congestion History Per: Patient History/Exam Limitations: no limitations Onset/Duration Of Symptoms: Days Current Symptoms Are (Timing): Still Present Location Of Pain: Throat Sick Contacts (Context): None Associated Symptoms: Cough Ear Symptoms: Bilateral: None Recent travel outside of the [place]: Yes ([facility] 1 year ago) Additional History Per: Patient Past Medical History Reviewed: Historical Data, Nursing Documentation, Vital Signs Vital Signs: Last Vital Signs Temp 98.0 F 12/29/17 17:04 Pulse 87 12/29/17 17:04 Resp 20 12/29/17 17:04 BP 112/81 12/29/17 17:04 Pulse Ox 98 12/29/17 18:07 - Medical History PMH: No Chronic Diseases Denies: HIV, Chronic Kidney Disease Surgical History: No Surg Hx - [facility] Procedures EXCISION OF STOMACH, ENDO, DIAGN (05/07/17) TRANSFUSE NONAUT RED BLOOD CELLS IN PERIPH VEIN, PERC (05/07/17) Family History: States: No Known Family Hx - Social History Hx Alcohol Use: No Hx Substance Use: No - Immunization History Hx Tetanus Toxoid Vaccination: No Hx Influenza Vaccination: No Hx Pneumococcal Vaccination: No Review Of Systems Constitutional: Negative for: Fever, Chills ENT: Positive for: Throat Pain. Negative for: Nose Congestion Respiratory: Positive for: Cough, Hemoptysis. Negative for: Shortness of Breath Gastrointestinal: Negative for: Nausea, Vomiting, Abdominal Pain, Diarrhea Skin: Negative for: Rash Physical Exam - Physical Exam Appears: Non-toxic, No Acute Distress Skin: Normal Color, Warm, Dry Head: Atraumatic, Normacephalic Eye(s): bilateral: Normal Inspection Ear(s): Bilateral: Normal Nose: No Discharge Oral Mucosa: Moist Throat: Normal, No Erythema, No Exudate Neck: Normal ROM, Supple Chest: Symmetrical Cardiovascular: Rhythm Regular, No Murmur Respiratory: Normal Breath Sounds, No Rales, No Rhonchi, No Wheezing Gastrointestinal/Abdominal: Soft, No Tenderness, No Guarding, No Rebound Extremity: Normal ROM, No Tenderness, No Swelling Neurological/Psych: Oriented x3 Gait: Steady ED Course And Treatment - Laboratory Results Result Diagrams: 12/29/17 12:54 12/29/17 12:54 O2 Sat by Pulse Oximetry: 98 (On RA) Pulse Ox Interpretation: Normal - Other Rad CXR X-Ray: Viewed By Me, Read By Radiologist Interpretation: Accession No. : [id number]. Patient Name / ID : KADEEM COLEMAN / [id number]. Exam Date : 12/29/2017 12:31:42 ( Approved ). Study Comment : Sex / Age : M / 32Y. Creator : Abdifatah Smith MD. Dictator : Ammonium Nitrate Neutralizer : Ocean Export Coordinator : Abdifatah Smith MD. Approver2 : Report Date : 10/2017 13:26:31. My Comment : . HISTORY: Hemoptysis. COMPARISON: No prior. TECHNIQUE: Chest PA and lateral. FINDINGS: LUNGS: There is a right upper lobe infiltrate surrounding a central area of cavitation. PLEURA: No significant pleural effusion identified. No pneumothorax apparent. CARDIOVASCULAR: Normal. OSSEOUS STRUCTURES: No significant abnormalities. VISUALIZED UPPER ABDOMEN: Normal. OTHER FINDINGS: None. IMPRESSION: Right upper lobe infiltrate surrounding a central cavitation. - CT Scan/US CT chest Other Rad Studies (CT/US): Read By Radiologist, Radiology Report Reviewed CT/US Interpretation: Accession No. : [id number]. Patient Name / ID : KADEEM COLEMAN / [id number]. Exam Date : 12/29/2017 15:06:19 ( Approved ). Study Comment : Sex / Age : M / 32Y. Creator : Hedy De La Torre. Dictator : Ammonium Nitrate Neutralizer : Ocean Export Coordinator : Abdifatah Smith MD. Approver2 : Report Date : 10/2017 15:15:33. My Comment : . PROCEDURE: CT chest dated 12/29/2017. HISTORY: Assess cavitary lesion. COMPARISON: Comparison chest obtained earlier same day. TECHNIQUE: Contiguous axial images were obtained through the chest without intravenous contrast enhancement. Sagittal and coronal reconstructions were performed. . Radiation dose (DLP): 319.55 mGy-cm. This CT exam was performed using one or more of the following dose reduction techniques: Automated exposure control, adjustment of the mA and/or kV according to patient size, and/or use of iterative reconstruction technique. . FINDINGS: LUNGS: Re- demonstrated to better advantage is a patchy infiltrate in the posterior segment right upper lung field bordering the pleural surface with a slightly eccentric cavitary lesion that appears to exhibit a air-fluid level. . No other infiltrates are identified. MEDIASTINUM: Heart size within range of normal. No evidence of significant pericardial effusion. Ascending thoracic aorta measures approximately 2.9 cm and descending thoracic aorta measures approximately 1.8 cm. Pulmonary trunk measures approximately 2.5 cm. Few small nonspecific mediastinal lymph nodes are present. Evaluation for hilar adenopathy is limited due to the lack of circulating intravenous contrast material. Central airways are midline and patent. No central endoluminal lesions. PLEURA: No pleural fluid. No pneumothorax. BONES: Osseous structures appear intact. No bony destructive lesions. UPPER ABDOMEN: Visualized upper abdominal structures unremarkable. OTHER FINDINGS: None. IMPRESSION: Patchy infiltrate posterior segment right upper lobe with eccentric cavitary lesion that appears to exhibit an air-fluid level. Clinical correlation recommended. Medical Decision Making Medical Decision Making: Impression: Hemoptysis Plan: * Labs * CXR * UA Patient was placed in isolation in the ED. Spoke with Dr. Curran regarding the patient. Patient will be admitted to Dr. Curran's service and will be placed in respiratory isolation in the floor. Disposition - Disposition Disposition: HOSPITALIZED Disposition Time: 13:40 Condition: GOOD - Clinical Impression Clinical Impression: Hemoptysis, Cavitary lesion of lung - PA / COOKER CLEANER / Resident Statement MD/DO has reviewed & agrees with the documentation as recorded. - Scribe Statement The provider has reviewed the documentation as recorded by the Scribe Baldemar Stanley All medical record entries made by the Scribe were at my direction and personally dictated by me. I have reviewed the chart and agree that the record accurately reflects my personal performance of the history, physical exam, medical decision making, and the department course for this patient. I have also personally directed, reviewed, and agree with the discharge instructions and disposition. Decision To Admit - Pt Status Changed To: Hospital Disposition Of: Inpatient - Admit Certification Admit to Inpatient:: After my assessment, the patient will require hospitalization for at least two midnights. This is because of the severity of symptoms shown, intensity of services needed, and/or the medical risk in this patient being treated as an outpatient. 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 - . Bed Request Type: Regular Admitting Physician: Davin Curran Patient Diagnosis: Hemoptysis, Cavitary lesion of lung
[2017-12-29 13:55] LABS: BASOPHIL 2 % (0-2); GIANT PLATELETS PRESENT; LYMPHOCYTE 7 % (20-40); MONOCYTE 11 % (0-10); NEUTROPHIL 80 % (50-75); PLATELET ESTIMATE NORMAL (NORMAL); TOTAL CELLS COUNTED 100
[2017-12-29] MEDS ORDERED: Tuberculin 5 Units/0.1 ml Inj ID ONE (14:45)
[2017-12-29] MEDS ORDERED: cefTRIAXone IV 1 gm in Dextros 50 ML IVPB ONE (15:19)
[2017-12-29] MEDS ORDERED: Azithromycin 500mg/250ML NS 500 MG/250 ML BAG IVPB ONE (15:20)
--- NOTE | 2017-12-29 15:44 | CT ---
PROCEDURE: CT chest dated 12/29/2017 HISTORY: Assess cavitary lesion COMPARISON: Comparison chest obtained earlier same day TECHNIQUE: Contiguous axial images were obtained through the chest without intravenous contrast enhancement. Sagittal and coronal reconstructions were performed. Radiation dose (DLP): 319.55 mGy-cm. This CT exam was performed using one or more of the following dose reduction techniques: Automated exposure control, adjustment of the mA and/or kV according to patient size, and/or use of iterative reconstruction technique. . FINDINGS: LUNGS: Re- demonstrated to better advantage is a patchy infiltrate in the posterior segment right upper lung field bordering the pleural surface with a slightly eccentric cavitary lesion that appears to exhibit a air-fluid level. . No other infiltrates are identified. MEDIASTINUM: Heart size within range of normal. No evidence of significant pericardial effusion. Ascending thoracic aorta measures approximately 2.9 cm and descending thoracic aorta measures approximately 1.8 cm. Pulmonary trunk measures approximately 2.5 cm. Few small nonspecific mediastinal lymph nodes are present. Evaluation for hilar adenopathy is limited due to the lack of circulating intravenous contrast material. Central airways are midline and patent. No central endoluminal lesions. PLEURA: No pleural fluid. No pneumothorax. BONES: Osseous structures appear intact. No bony destructive lesions. UPPER ABDOMEN: Visualized upper abdominal structures unremarkable OTHER FINDINGS: None. IMPRESSION: Patchy infiltrate posterior segment right upper lobe with eccentric cavitary lesion that appears to exhibit an air-fluid level. Clinical correlation recommended.
[2017-12-29] MEDS: Azithromycin 500 MG in Sodium Chloride 0.9% 250 ML IVPB SCH (16:19)
--- NOTE | 2017-12-29 16:46 | CP.PCM.HP ---
<Orlando Frances - Last Filed: 12/29/17 16:38> History of Present Illness - History of Present Illness History of Present Illness: PGY-1 H&P for Dr. Curran CC: Hemoptysis This is a 32 year old male originally from [facility] with PMHx duodenal ulcer with H. pylori infection who presented complaining of hemoptysis. Patient stated that this began on Friday of last week. He came to the emergency room today because he noticed significantly more blood in his sputum. The cough worsens towards the end of the day and is also worsened after drinking cold beverages. He has not tried any medications for his cough. Patient has also began experiencing night sweats last night. He denies any recent travels stating that after he arrived in 2016, he has not been outside of the [place] since then. Patient intially denied sick contacts, but then stated that some people at his workplace have occasionally had a cold. Per patient, his co- workers were not experiencing similar symptoms as he is currently. Of note, patient has stopped taking Aspirin or NSAIDs ever since the previous hospitalization for GI bleed. Patient denies fevers, chills, weight changes, chest pain, dyspnea, abdominal pain, or dysuria at this time. PMHx: Duodenal ulcer with H. Pylori infection PSHx: Denies Allergies: NKDA Social: Denies tobacco, alcohol, drug use. 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 Family Hx: Unknown to patient PMD: [facility] meds: Denies Emergency Contact: Faye Coronado [phone] Code Status: Full code Present on Admission - Present on Admission Any Indicators Present on Admission: No Review of Systems - Constitutional Constitutional: absent: Chills, Fever - EENT Eyes: absent: Change in Vision Ears: absent: Decreased Hearing Nose/Mouth/Throat: absent: Nasal Congestion - Cardiovascular Cardiovascular: absent: Chest Pain - Respiratory Respiratory: Cough. absent: Dyspnea, Wheezing - Gastrointestinal Gastrointestinal: absent: Abdominal Pain, Constipation, Diarrhea, Nausea, Vomiting - Genitourinary Genitourinary: absent: Dysuria - Musculoskeletal Musculoskeletal: absent: Back Pain - Integumentary Integumentary: absent: Rash - Neurological Neurological: absent: Weakness - Psychiatric Psychiatric: absent: Change in Appetite - Endocrine Endocrine: absent: Palpitations Past Patient History - Infectious Disease Hx of Infectious Diseases: None - Past Medical History & Family History Past Medical History?: No - Past Social History Smoking Status: Never Smoked - CARDIAC Hx Cardiac Disorders: No - PULMONARY Hx Respiratory Disorders: No - NEUROLOGICAL Hx Neurological Disorder: No - HEENT Hx HEENT Problems: No - RENAL Hx Chronic Kidney Disease: No - ENDOCRINE/METABOLIC Hx Endocrine Disorders: No - HEMATOLOGICAL/ONCOLOGICAL Hx Human Immunodeficiency Virus (HIV): No - MUSCULOSKELETAL/RHEUMATOLOGICAL Hx Falls: No - GASTROINTESTINAL Hx Gastrointestinal Disorders: No - PSYCHIATRIC Hx Substance Use: No - SURGICAL HISTORY Hx Surgeries: No - ANESTHESIA Hx Anesthesia: No Meds Allergies/Adverse Reactions: Allergies Allergy/AdvReac Type Severity Reaction Status Date / Time No Known Allergies Allergy Verified 05/07/17 15:55 Physical Exam - Constitutional Appears: No Acute Distress - Head Exam Head Exam: ATRAUMATIC, NORMOCEPHALIC - Eye Exam Eye Exam: EOMI, PERRL - ENT Exam ENT Exam: Mucous Membranes Moist - Respiratory Exam Respiratory Exam: Clear to Auscultation Bilateral, NORMAL BREATHING PATTERN. absent: Rales, Rhonchi, Wheezes - Cardiovascular Exam Cardiovascular Exam: REGULAR RHYTHM, +S1, +S2 - GI/Abdominal Exam GI & Abdominal Exam: Normal Bowel Sounds, Soft. absent: Distended, Tenderness - Extremities Exam Extremities exam: Positive for: pedal pulses present. Negative for: pedal edema , tenderness - Neurological Exam Neurological exam: Alert, CN II-XII Intact, Oriented x3 - Psychiatric Exam Psychiatric exam: Normal Affect, Normal Mood - Skin Skin Exam: Dry, Warm Results - Vital Signs Recent Vital Signs: Last Vital Signs Temp 100.1 F H 12/29/17 13:58 Pulse 93 H 12/29/17 13:58 Resp 18 12/29/17 13:58 BP 114/65 12/29/17 13:58 Pulse Ox 97 12/29/17 13:58 - Labs Result Diagrams: 12/29/17 12:54 12/29/17 12:54 Labs: Laboratory Results - last 24 hr 12/29/17 12/29/17 12/29/17 12:54 12:54 12:57 WBC 13.4 H D RBC 5.12 Hgb 15.6 D Hct 45.2 MCV 88.2 MCH 30.4 MCHC 34.4 RDW 12.4 Plt Count 308 MPV 7.9 Neut % (Auto) 77.4 H Lymph % (Auto) 6.1 L [place] % (Auto) 15.4 H Eos % (Auto) 0.6 Baso % (Auto) 0.5 Neut # (Auto) 10.3 H Lymph # (Auto) 0.8 L [place] # (Auto) 2.1 H Eos # (Auto) 0.1 Baso # (Auto) 0.1 Neutrophils % (Manual) 80 H Lymphocytes % (Manual) 7 L Monocytes % (Manual) 11 H Basophils % (Manual) 2 Platelet Estimate Normal Giant Platelets Present Sodium 143 Potassium 3.7 Chloride 101 Carbon Dioxide 28 Anion Gap 19 BUN 11 Creatinine 0.8 Est GFR ( Amer) > 60 Est GFR (Non-Af Amer) > 60 Random Glucose 90 Lactic Acid 1.0 Calcium 9.3 Total Bilirubin 0.6 AST 23 ALT 21 D Alkaline Phosphatase 84 Total Protein 8.4 H Albumin 4.2 Globulin 4.2 H Albumin/Globulin Ratio 1.0 Urine Color Urine Clarity Urine pH Ur Specific Lambert Urine Protein Urine Glucose (UA) Urine Ketones Urine Blood Urine Nitrate Urine Bilirubin Urine Urobilinogen Ur Leukocyte Esterase Urine WBC (Auto) Urine RBC (Auto) Influenza Typ A,B (EIA) 12/29/17 12/29/17 13:25 14:51 WBC RBC Hgb Hct MCV MCH MCHC RDW Plt Count MPV Neut % (Auto) Lymph % (Auto) [place] % (Auto) Eos % (Auto) Baso % (Auto) Neut # (Auto) Lymph # (Auto) [place] # (Auto) Eos # (Auto) Baso # (Auto) Neutrophils % (Manual) Lymphocytes % (Manual) Monocytes % (Manual) Basophils % (Manual) Platelet Estimate Giant Platelets Sodium Potassium Chloride Carbon Dioxide Anion Gap BUN Creatinine Est GFR ( Amer) Est GFR (Non-Af Amer) Random Glucose Lactic Acid Calcium Total Bilirubin AST ALT Alkaline Phosphatase Total Protein Albumin Globulin Albumin/Globulin Ratio Urine Color Yellow Urine Clarity Clear Urine pH 6.0 Ur Specific Lambert 1.029 Urine Protein 1+ H Urine Glucose (UA) Normal Urine Ketones Negative Urine Blood Negative Urine Nitrate Negative Urine Bilirubin Negative Urine Urobilinogen 4.0 Ur Leukocyte Esterase Neg Urine WBC (Auto) 1 Urine RBC (Auto) 7 H Influenza Typ A,B (EIA) Negative for flu a/b Assessment & Plan - Assessment and Plan (Free Text) Plan: RUL Cavitary Lesions--likely Tuberculosis As seen prominently in CXR Droplet Isolation f/u AFB sputum x3 f/u PPD placed on admission f/u sputum culture f/u blood culture f/u HIV studies Azithromycin 500 mg IV daily for now Ceftriaxone 1 gm IV daily for now ID consult, Dr. Luis, help appreciated Chest CT w.o. contrast: * Patchy infiltrate posterior segment right upper lobe with eccentric cavitary lesion that appears to exhibit an air-fluid level. Prophylaxis Regular Diet Protonix 40 mg PO daily Contraindication for chemical VTE SCDs for now Droplet Isolation Discussed with Dr. Bina Frances PGY-1 <Davin Curran H - Last Filed: 12/29/17 18:55> Results - Vital Signs Recent Vital Signs: Last Vital Signs Temp 98.0 F 12/29/17 17:04 Pulse 87 12/29/17 17:04 Resp 20 12/29/17 17:04 BP 112/81 12/29/17 17:04 Pulse Ox 98 12/29/17 18:08 - Labs Result Diagrams: 12/29/17 12:54 12/29/17 12:54 Labs: Laboratory Results - last 24 hr 12/29/17 12/29/17 12/29/17 12:54 12:54 12:57 WBC 13.4 H D RBC 5.12 Hgb 15.6 D Hct 45.2 MCV 88.2 MCH 30.4 MCHC 34.4 RDW 12.4 Plt Count 308 MPV 7.9 Neut % (Auto) 77.4 H Lymph % (Auto) 6.1 L [place] % (Auto) 15.4 H Eos % (Auto) 0.6 Baso % (Auto) 0.5 Neut # (Auto) 10.3 H Lymph # (Auto) 0.8 L [place] # (Auto) 2.1 H Eos # (Auto) 0.1 Baso # (Auto) 0.1 Neutrophils % (Manual) 80 H Lymphocytes % (Manual) 7 L Monocytes % (Manual) 11 H Basophils % (Manual) 2 Platelet Estimate Normal Giant Platelets Present Sodium 143 Potassium 3.7 Chloride 101 Carbon Dioxide 28 Anion Gap 19 BUN 11 Creatinine 0.8 Est GFR ( Amer) > 60 Est GFR (Non-Af Amer) > 60 Random Glucose 90 Lactic Acid 1.0 Calcium 9.3 Total Bilirubin 0.6 AST 23 ALT 21 D Alkaline Phosphatase 84 Total Protein 8.4 H Albumin 4.2 Globulin 4.2 H Albumin/Globulin Ratio 1.0 Urine Color Urine Clarity Urine pH Ur Specific Lambert Urine Protein Urine Glucose (UA) Urine Ketones Urine Blood Urine Nitrate Urine Bilirubin Urine Urobilinogen Ur Leukocyte Esterase Urine WBC (Auto) Urine RBC (Auto) HIV 1&2 Antibody Screen Influenza Typ A,B (EIA) 12/29/17 12/29/17 12/29/17 13:25 14:51 15:49 WBC RBC Hgb Hct MCV MCH MCHC RDW Plt Count MPV Neut % (Auto) Lymph % (Auto) [place] % (Auto) Eos % (Auto) Baso % (Auto) Neut # (Auto) Lymph # (Auto) [place] # (Auto) Eos # (Auto) Baso # (Auto) Neutrophils % (Manual) Lymphocytes % (Manual) Monocytes % (Manual) Basophils % (Manual) Platelet Estimate Giant Platelets Sodium Potassium Chloride Carbon Dioxide Anion Gap BUN Creatinine Est GFR ( Amer) Est GFR (Non-Af Amer) Random Glucose Lactic Acid Calcium Total Bilirubin AST ALT Alkaline Phosphatase Total Protein Albumin Globulin Albumin/Globulin Ratio Urine Color Yellow Urine Clarity Clear Urine pH 6.0 Ur Specific Lambert 1.029 Urine Protein 1+ H Urine Glucose (UA) Normal Urine Ketones Negative Urine Blood Negative Urine Nitrate Negative Urine Bilirubin Negative Urine Urobilinogen 4.0 Ur Leukocyte Esterase Neg Urine WBC (Auto) 1 Urine RBC (Auto) 7 H HIV 1&2 Antibody Screen Negative Influenza Typ A,B (EIA) Negative for flu a/b Attending/Attestation - Attestation I have personally seen and examined this patient.: Yes I have fully participated in the care of the patient.: Yes I have reviewed all pertinent clinical information: Yes Notes (Text): 12/29/17 18:51 Medical attending: Patient was seen and examined by me Agree with the above note by the resident The patient was not in any acute distress when we saw him. He was not short of breath at rest. He was speaking in full sentences I saw the CXRAY in the ER and it has a aashish cavitary like lesion. We then ordered a CT of the chest as well and it just returned. Besides that cavitary lesion it did not show other things. He tells us that in the mornings when he wakes up - or if he has hot tea it seems to make him cough up blood. Its been like this for at least a few days now. We are checking sputum for stain/culture of AFB as well PPD, also Qunaterferon gold was ordered however not mentioned in the above resident note For now rocephin and azithromycin. We need ID evaluation. Will need to check for HIV as well since he has been travelling within the past 2 years to other nations. I explained to the patient he maybe here for sometime while we are collecting the AFBs. thank you Davin Curran
--- NOTE | 2017-12-30 07:10 | CP.PCM.PN ---
<Orlando Frances - Last Filed: 12/30/17 12:42> Subjective - Date & Time of Evaluation Date of Evaluation: 12/30/17 Time of Evaluation: 07:10 - Subjective Subjective: Medicine progress note for Dr. Curran Patient seen and examined. Patient has no acute complaints at this time. He is coughing up blood although this has decreased in amount. Patient still primarily coughs at night. Patient denies fever, chills, chest pain, dyspnea, abdominal pain, dysuria. Objective - Vital Signs/Intake and Output Vital Signs (last 24 hours): Temp Pulse Resp BP Pulse Ox 98.0 F 77 20 112/61 97 12/30/17 05:45 12/30/17 05:45 12/29/17 23:31 12/30/17 05:45 12/29/17 23:31 Intake and Output: 12/30/17 12/30/17 06:59 18:59 Intake Total 1040 Balance 1040 - Medications Medications: Current Medications Acetaminophen (Tylenol 325mg Tab) 650 mg PO Q6 PRN PRN Reason: Fever >100.4 F Azithromycin 500 mg/ Sodium (Chloride) 250 mls @ 250 mls/hr IVPB DAILY ESTEE PRN Reason: Protocol Last Admin: 12/29/17 16:19 Dose: 250 mls/hr Ceftriaxone Sodium 1 gm/ (Sodium Chloride) 100 mls @ 100 mls/hr IVPB DAILY ESTEE PRN Reason: Protocol Last Admin: 12/29/17 15:48 Dose: 100 mls/hr Pantoprazole Sodium (Protonix Ec Tab) 40 mg PO DAILY ESTEE - Labs Labs: 12/29/17 12:54 12/29/17 12:54 - Additional Findings Additional findings: - Constitutional Appears: No Acute Distress - Head Exam Head Exam: ATRAUMATIC, NORMOCEPHALIC - Eye Exam Eye Exam: EOMI, PERRL - ENT Exam ENT Exam: Mucous Membranes Moist - Respiratory Exam Respiratory Exam: Clear to Auscultation Bilateral, NORMAL BREATHING PATTERN. absent: Rales, Rhonchi, Wheezes - Cardiovascular Exam Cardiovascular Exam: REGULAR RHYTHM, +S1, +S2 - GI/Abdominal Exam GI & Abdominal Exam: Normal Bowel Sounds, Soft. absent: Distended, Tenderness - Extremities Exam Extremities exam: Positive for: pedal pulses present. Negative for: pedal edema , tenderness - Neurological Exam Neurological exam: Alert, CN II-XII Intact, Oriented x3 - Psychiatric Exam Psychiatric exam: Normal Affect, Normal Mood - Skin Skin Exam: Dry, Warm Assessment and Plan - Assessment and Plan (Free Text) Plan: RUL Cavitary Lesions--likely Tuberculosis As seen prominently in CXR Droplet Isolation f/u AFB sputum x3 f/u PPD placed on admission f/u sputum culture f/u blood culture HIV screening negative Due to suspicion, HIV 4th generation panel ordered Azithromycin 500 mg IV daily for now started on 12/29 Ceftriaxone 1 gm IV daily for now started on 12/29 ID consult, Dr. Luis, help appreciated--will hold until positive AFB before starting TB medications Chest CT w.o. contrast: * Patchy infiltrate posterior segment right upper lobe with eccentric cavitary lesion that appears to exhibit an air-fluid level. Prophylaxis Regular Diet Protonix 40 mg PO daily Contraindication for chemical VTE SCDs for now Droplet Isolation Disposition: Will await positive AFB sputum results before starting TB medications. There is a possibility of other bacterial causes for the cavitation , although it is less likely. Discussed with Dr. Bina Frances PGY-1 <Davin Curran - Last Filed: 12/30/17 14:08> Objective - Vital Signs/Intake and Output Vital Signs (last 24 hours): Temp Pulse Resp BP Pulse Ox 98.4 F 89 20 103/64 97 12/30/17 07:05 12/30/17 07:05 12/30/17 07:05 12/30/17 07:05 12/30/17 07:05 Intake and Output: 12/30/17 12/30/17 06:59 18:59 Intake Total 1040 Balance 1040 - Medications Medications: Current Medications Acetaminophen (Tylenol 325mg Tab) 650 mg PO Q6 PRN PRN Reason: Fever >100.4 F Azithromycin 500 mg/ Sodium (Chloride) 250 mls @ 250 mls/hr IVPB DAILY ESTEE PRN Reason: Protocol Last Admin: 12/30/17 10:33 Dose: 250 mls/hr Ceftriaxone Sodium 1 gm/ (Sodium Chloride) 100 mls @ 100 mls/hr IVPB DAILY ESTEE PRN Reason: Protocol Last Admin: 12/30/17 09:13 Dose: 100 mls/hr Pantoprazole Sodium (Protonix Ec Tab) 40 mg PO DAILY ESTEE Last Admin: 12/30/17 09:14 Dose: 40 mg - Labs Labs: 12/30/17 07:18 12/30/17 07:18 Attending/Attestation - Attestation I have personally seen and examined this patient.: Yes I have fully participated in the care of the patient.: Yes I have reviewed all pertinent clinical information, including history, physical exam and plan: Yes Notes (Text): 12/30/17 14:07 Medical attending: Patient was seen and examined by me, agrees the above note by the medical certification specialist. Since yesterday he underwent a CT w/o contrast of the chest - it again redemonstrated the RUL cavitary lesion. The patient reported no acute events over the night. He did not remember any fevers. He was able to produce sputum for the AFB stain and culture. Today we explained to him that if he has any family members visiting that they need to be wearing the proper mask protection. Also we explained to him that it might take some time before able to successfully collect all 3 sputum AFBs stain and cultures. In the meantime were giving continue with the Rocephin and azithromycin and will make changes to his medications once we get more information back. His HIV rapid study was negative, we went ahead and ordered a fourth-generation studies Davin Curran
[2017-12-30 07:32] LABS: BASO % 0.5 % (0.0-2.0); EOS # 0.1 K/uL (0.0-0.7); EOS % 1.4 % (0.0-4.0); LYMPH # 0.8 K/uL (1.0-4.3); LYMPH % 8.8 % (20.0-40.0); MEAN CELL VOLUME 88.4 fL (80.0-94.0); MEAN CORPUSCULAR HEMOGLOBIN 30.5 pg (27.0-31.0); MEAN CORPUSCULAR HGB CONC 34.5 g/dL (33.0-37.0); MEAN PLATELET VOLUME 7.7 fL (7.2-11.7); MONO # 1.7 K/uL (0.0-0.8); MONO % 17.6 % (0.0-10.0); NEUT # 6.8 K/uL (1.8-7.0); NEUT % 71.7 % (50.0-75.0); PLATELET COUNT 320 K/uL (130-400); RBC 4.91 Mil/uL (4.40-5.90); RED CELL DISTRIBUTION WIDTH 12.8 % (11.5-14.5); WHITE BLOOD COUNT 9.4 K/uL (4.8-10.8)
[2017-12-30 08:05] LABS: BLOOD UREA NITROGEN 14 mg/dL (9-20); CALCIUM 9.2 mg/dl (8.6-10.4); GFR AFRICAN-AMERICAN > 60; GFR NON-AFRICAN AMERICAN > 60
[2017-12-30 08:43] LABS: BASOPHIL 1 % (0-2); EOSINOPHIL 1 % (0-4); LYMPHOCYTE 9 % (20-40); MONOCYTE 10 % (0-10); NEUTROPHIL 79 % (50-75); PLATELET ESTIMATE NORMAL (NORMAL); TOTAL CELLS COUNTED 100
[2017-12-30] MEDS: Pantoprazole 40 mg EC Tab PO SCH (09:14)
[2017-12-30] MEDS: Azithromycin 500 MG in Sodium Chloride 0.9% 250 ML IVPB SCH (10:33)
--- NOTE | 2017-12-30 11:17 | CP.PCM.CON ---
History of Present Illness - History of Present Illness History of Present Illness: 32 year old male from [facility] presented complaining of hemoptysis. Patient stated that this began on Friday of last week. He came to the emergency room today because he noticed significantly more blood in his sputum. Patient has also began experiencing night sweats last night. He denies any recent travels stating that after he arrived in 2016, he has not been outside of the [place] since then. Per patient, his co-workers were not experiencing similar symptoms as he is currently. PMHx: Duodenal ulcer with H. Pylori infection PSHx: Denies Allergies: NKDA Social: Denies tobacco, alcohol, drug use. 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 Family Hx: Unknown to patient Home meds: Denies Present on Admission - Present on Admission Any Indicators Present on Admission: No Review of Systems - Constitutional Constitutional: absent: Chills, Fever - EENT Eyes: absent: Change in Vision Ears: absent: Decreased Hearing Nose/Mouth/Throat: absent: Nasal Congestion - Cardiovascular Cardiovascular: absent: Chest Pain - Respiratory Respiratory: Cough. absent: Dyspnea, Wheezing - Gastrointestinal Gastrointestinal: absent: Abdominal Pain, Constipation, Diarrhea, Nausea, Vomiting - Genitourinary Genitourinary: absent: Dysuria - Musculoskeletal Musculoskeletal: absent: Back Pain - Integumentary Integumentary: absent: Rash - Neurological Neurological: absent: Weakness - Psychiatric Psychiatric: absent: Change in Appetite - Endocrine Endocrine: absent: Palpitations Past Patient History - Infectious Disease Hx of Infectious Diseases: None - Past Medical History & Family History Past Medical History?: No - Past Social History Smoking Status: Never Smoked - CARDIAC Hx Cardiac Disorders: No - PULMONARY Hx Respiratory Disorders: No - NEUROLOGICAL Hx Neurological Disorder: No - HEENT Hx HEENT Problems: No - RENAL Hx Chronic Kidney Disease: No - ENDOCRINE/METABOLIC Hx Endocrine Disorders: No - HEMATOLOGICAL/ONCOLOGICAL Hx Human Immunodeficiency Virus (HIV): No - MUSCULOSKELETAL/RHEUMATOLOGICAL Hx Falls: No - GASTROINTESTINAL Hx Gastrointestinal Disorders: No Past Patient History - Infectious Disease Hx of Infectious Diseases: None - Past Medical History & Family History Past Medical History?: Yes - Past Social History Smoking Status: Never Smoked - CARDIAC Hx Cardiac Disorders: No - PULMONARY Hx Respiratory Disorders: No - NEUROLOGICAL Hx Neurological Disorder: No - HEENT Hx HEENT Problems: No - RENAL Hx Chronic Kidney Disease: No - ENDOCRINE/METABOLIC Hx Endocrine Disorders: No - HEMATOLOGICAL/ONCOLOGICAL Hx Human Immunodeficiency Virus (HIV): No - MUSCULOSKELETAL/RHEUMATOLOGICAL Hx Falls: No - GASTROINTESTINAL Hx Gastrointestinal Disorders: Yes Hx Ulcer: Yes (duodenal) Other/Comment: H.Pylori. GI Bleed - GENITOURINARY/GYNECOLOGICAL Hx Genitourinary Disorders: No - PSYCHIATRIC Hx Substance Use: No - SURGICAL HISTORY Hx Surgeries: No - ANESTHESIA Hx Anesthesia: No Hx Anesthesia Reactions: No Hx Malignant Hyperthermia: No Has any member of the family had a problem w/ anesthesia?: No Meds Allergies/Adverse Reactions: Allergies Allergy/AdvReac Type Severity Reaction Status Date / Time No Known Allergies Allergy Verified 05/07/17 15:55 - Medications Medications: Current Medications Acetaminophen (Tylenol 325mg Tab) 650 mg PO Q6 PRN PRN Reason: Fever >100.4 F Azithromycin 500 mg/ Sodium (Chloride) 250 mls @ 250 mls/hr IVPB DAILY ESTEE PRN Reason: Protocol Last Admin: 12/30/17 10:33 Dose: 250 mls/hr Ceftriaxone Sodium 1 gm/ (Sodium Chloride) 100 mls @ 100 mls/hr IVPB DAILY ESTEE PRN Reason: Protocol Last Admin: 12/30/17 09:13 Dose: 100 mls/hr Pantoprazole Sodium (Protonix Ec Tab) 40 mg PO DAILY ESTEE Last Admin: 12/30/17 09:14 Dose: 40 mg Physical Exam - Constitutional Appears: Chronically Ill - Head Exam Head Exam: ATRAUMATIC, NORMOCEPHALIC - Eye Exam Eye Exam: Scleral icterus - ENT Exam ENT Exam: Mucous Membranes Dry, Normal External Ear Exam - Neck Exam Neck exam: Negative for: Lymphadenopathy - Respiratory Exam Respiratory Exam: Decreased Breath Sounds, Clear to Auscultation Bilateral - Cardiovascular Exam Cardiovascular Exam: REGULAR RHYTHM - GI/Abdominal Exam GI & Abdominal Exam: Diminished Bowel Sounds, Soft. absent: Tenderness - Rectal Exam Rectal Exam: Deferred - Exam Exam: NORMAL INSPECTION - Extremities Exam Extremities exam: Positive for: pedal pulses present. Negative for: calf tenderness, pedal edema, tenderness - Back Exam Back exam: absent: CVA tenderness (L), CVA tenderness (R) - Neurological Exam Neurological exam: Alert, CN II-XII Intact, Oriented x3, Reflexes Normal - Psychiatric Exam Psychiatric exam: Normal Mood - Skin Skin Exam: Dry Results - Vital Signs Recent Vital Signs: Last Vital Signs Temp 98.4 F 12/30/17 07:05 Pulse 89 12/30/17 07:05 Resp 20 12/30/17 07:05 BP 103/64 12/30/17 07:05 Pulse Ox 97 12/30/17 07:05 - Labs Result Diagrams: 12/30/17 07:18 12/30/17 07:18 Labs: Laboratory Results - last 24 hr 12/29/17 12/29/17 12/29/17 12:54 12:54 12:57 WBC 13.4 H D RBC 5.12 Hgb 15.6 D Hct 45.2 MCV 88.2 MCH 30.4 MCHC 34.4 RDW 12.4 Plt Count 308 MPV 7.9 Neut % (Auto) 77.4 H Lymph % (Auto) 6.1 L Cassia % (Auto) 15.4 H Eos % (Auto) 0.6 Baso % (Auto) 0.5 Neut # (Auto) 10.3 H Lymph # (Auto) 0.8 L Cassia # (Auto) 2.1 H Eos # (Auto) 0.1 Baso # (Auto) 0.1 Neutrophils % (Manual) 80 H Lymphocytes % (Manual) 7 L Monocytes % (Manual) 11 H Eosinophils % (Manual) Basophils % (Manual) 2 Platelet Estimate Normal Giant Platelets Present RBC Morphology Sodium 143 Potassium 3.7 Chloride 101 Carbon Dioxide 28 Anion Gap 19 BUN 11 Creatinine 0.8 Est GFR ( Amer) > 60 Est GFR (Non-Af Amer) > 60 Random Glucose 90 Lactic Acid 1.0 Calcium 9.3 Total Bilirubin 0.6 AST 23 ALT 21 D Alkaline Phosphatase 84 Total Protein 8.4 H Albumin 4.2 Globulin 4.2 H Albumin/Globulin Ratio 1.0 Urine Color Urine Clarity Urine pH Ur Specific [place] Urine Protein Urine Glucose (UA) Urine Ketones Urine Blood Urine Nitrate Urine Bilirubin Urine Urobilinogen Ur Leukocyte Esterase Urine WBC (Auto) Urine RBC (Auto) HIV 1&2 Antibody Screen Influenza Typ A,B (EIA) 12/29/17 12/29/17 12/29/17 13:25 14:51 15:49 WBC RBC Hgb Hct MCV MCH MCHC RDW Plt Count MPV Neut % (Auto) Lymph % (Auto) Cassia % (Auto) Eos % (Auto) Baso % (Auto) Neut # (Auto) Lymph # (Auto) Cassia # (Auto) Eos # (Auto) Baso # (Auto) Neutrophils % (Manual) Lymphocytes % (Manual) Monocytes % (Manual) Eosinophils % (Manual) Basophils % (Manual) Platelet Estimate Giant Platelets RBC Morphology Sodium Potassium Chloride Carbon Dioxide Anion Gap BUN Creatinine Est GFR ( Amer) Est GFR (Non-Af Amer) Random Glucose Lactic Acid Calcium Total Bilirubin AST ALT Alkaline Phosphatase Total Protein Albumin Globulin Albumin/Globulin Ratio Urine Color Yellow Urine Clarity Clear Urine pH 6.0 Ur Specific [place] 1.029 Urine Protein 1+ H Urine Glucose (UA) Normal Urine Ketones Negative Urine Blood Negative Urine Nitrate Negative Urine Bilirubin Negative Urine Urobilinogen 4.0 Ur Leukocyte Esterase Neg Urine WBC (Auto) 1 Urine RBC (Auto) 7 H HIV 1&2 Antibody Screen Negative Influenza Typ A,B (EIA) Negative for flu a/b 12/30/17 12/30/17 07:18 07:18 WBC 9.4 RBC 4.91 Hgb 15.0 Hct 43.4 MCV 88.4 MCH 30.5 MCHC 34.5 RDW 12.8 Plt Count 320 MPV 7.7 Neut % (Auto) 71.7 Lymph % (Auto) 8.8 L Cassia % (Auto) 17.6 H Eos % (Auto) 1.4 Baso % (Auto) 0.5 Neut # (Auto) 6.8 Lymph # (Auto) 0.8 L Cassia # (Auto) 1.7 H Eos # (Auto) 0.1 Baso # (Auto) 0.0 Neutrophils % (Manual) 79 H Lymphocytes % (Manual) 9 L Monocytes % (Manual) 10 Eosinophils % (Manual) 1 Basophils % (Manual) 1 Platelet Estimate Normal Giant Platelets RBC Morphology Normal Sodium 140 Potassium 3.8 Chloride 102 Carbon Dioxide 24 Anion Gap 18 BUN 14 Creatinine 0.9 Est GFR ( Amer) > 60 Est GFR (Non-Af Amer) > 60 Random Glucose 84 Lactic Acid Calcium 9.2 Total Bilirubin AST ALT Alkaline Phosphatase Total Protein Albumin Globulin Albumin/Globulin Ratio Urine Color Urine Clarity Urine pH Ur Specific [place] Urine Protein Urine Glucose (UA) Urine Ketones Urine Blood Urine Nitrate Urine Bilirubin Urine Urobilinogen Ur Leukocyte Esterase Urine WBC (Auto) Urine RBC (Auto) HIV 1&2 Antibody Screen Influenza Typ A,B (EIA) Assessment & Plan (1) Cavitary lesion of lung Status: Acute (2) Hemoptysis Status: Acute - Assessment and Plan (Free Text) Assessment: well circumscribed cavitary pneumonia RUL [facility] [place] [facility] [place] TB likely other etiologies like fungus, bacterial, nocardia, actino, malignancy less likely await smears will check HIV status
[2017-12-30 15:06] LABS: HEPATITIS B SURFACE AG Negative (NEGATIVE)
[2017-12-30 15:12] LABS: HEPATITIS A IGM NEGATIVE (NEGATIVE); HEPATITIS B CORE AB NEGATIVE (NEGATIVE)
[2017-12-30 15:23] LABS: HEPATITIS C ANTIBODY NEGATIVE (NEGATIVE)
--- NOTE | 2017-12-31 06:18 | CP.PCM.PN ---
<Orlando Frances - Last Filed: 12/31/17 14:52> Subjective - Date & Time of Evaluation Date of Evaluation: 12/31/17 Time of Evaluation: 06:10 - Subjective Subjective: Medicine progress note for Dr. Curran Patient seen and examined. Patient has no acute complaints at this time and is resting comfortably. No acute events noted. Patient denies fever, chills, chest pain, dyspnea, abdominal pain, dysuria. Objective - Vital Signs/Intake and Output Vital Signs (last 24 hours): Temp Pulse Resp BP Pulse Ox 98.1 F 73 20 119/69 96 12/30/17 23:20 12/30/17 23:20 12/30/17 23:20 12/30/17 23:20 12/30/17 23:20 Intake and Output: 12/30/17 12/31/17 18:59 06:59 Intake Total 1150 300 Balance 1150 300 - Medications Medications: Current Medications Acetaminophen (Tylenol 325mg Tab) 650 mg PO Q6 PRN PRN Reason: Fever >100.4 F Azithromycin 500 mg/ Sodium (Chloride) 250 mls @ 250 mls/hr IVPB DAILY ESTEE PRN Reason: Protocol Last Admin: 12/30/17 10:33 Dose: 250 mls/hr Ceftriaxone Sodium 1 gm/ (Sodium Chloride) 100 mls @ 100 mls/hr IVPB DAILY ESTEE PRN Reason: Protocol Last Admin: 12/30/17 09:13 Dose: 100 mls/hr Pantoprazole Sodium (Protonix Ec Tab) 40 mg PO DAILY [facility] Last Admin: 12/30/17 09:14 Dose: 40 mg - Labs Labs: 12/30/17 07:18 12/30/17 07:18 - Additional Findings Additional findings: - Constitutional Appears: No Acute Distress - Head Exam Head Exam: ATRAUMATIC, NORMOCEPHALIC - Eye Exam Eye Exam: EOMI, PERRL - ENT Exam ENT Exam: Mucous Membranes Moist - Respiratory Exam Respiratory Exam: Clear to Auscultation Bilateral, NORMAL BREATHING PATTERN. absent: Rales, Rhonchi, Wheezes - Cardiovascular Exam Cardiovascular Exam: REGULAR RHYTHM, +S1, +S2 - GI/Abdominal Exam GI & Abdominal Exam: Normal Bowel Sounds, Soft. absent: Distended, Tenderness - Extremities Exam Extremities exam: Positive for: pedal pulses present. Negative for: pedal edema , tenderness - Neurological Exam Neurological exam: Alert, CN II-XII Intact, Oriented x3 - Psychiatric Exam Psychiatric exam: Normal Affect, Normal Mood - Skin Skin Exam: Dry, Warm Assessment and Plan - Assessment and Plan (Free Text) Plan: RUL Cavitary Lesions--likely Tuberculosis As seen prominently in CXR Droplet Isolation f/u AFB sputum x3 PPD placed on admission--no induration so far sputum culture negative blood culture negative HIV screening negative Due to suspicion, HIV 4th generation panel ordered Azithromycin 500 mg IV daily for now started on 12/29 Ceftriaxone 1 gm IV daily for now started on 12/29 ID consult, Dr. Luis, help appreciated--will hold until positive AFB before starting TB medications Chest CT w.o. contrast: * Patchy infiltrate posterior segment right upper lobe with eccentric cavitary lesion that appears to exhibit an air-fluid level. Prophylaxis Regular Diet Protonix 40 mg PO daily Contraindication for chemical VTE SCDs for now Droplet Isolation Disposition: Will await positive AFB sputum results before starting TB medications. There is a possibility of other bacterial causes for the cavitation , although it is less likely. Discussed with Dr. Bina Frances PGY-1 <Davin Curran - Last Filed: 12/31/17 15:03> Objective - Vital Signs/Intake and Output Vital Signs (last 24 hours): Temp Pulse Resp BP Pulse Ox 98.6 F 90 20 112/70 98 12/31/17 07:41 12/31/17 07:41 12/31/17 07:41 12/31/17 07:41 12/31/17 07:41 Intake and Output: 12/31/17 12/31/17 06:59 18:59 Intake Total 300 Balance 300 - Medications Medications: Current Medications Acetaminophen (Tylenol 325mg Tab) 650 mg PO Q6 PRN PRN Reason: Fever >100.4 F Azithromycin 500 mg/ Sodium (Chloride) 250 mls @ 250 mls/hr IVPB DAILY ESTEE PRN Reason: Protocol Last Admin: 12/31/17 10:21 Dose: 250 mls/hr Ceftriaxone Sodium 1 gm/ (Sodium Chloride) 100 mls @ 100 mls/hr IVPB DAILY ESTEE PRN Reason: Protocol Last Admin: 12/31/17 09:00 Dose: 100 mls/hr Pantoprazole Sodium (Protonix Ec Tab) 40 mg PO DAILY ESTEE Last Admin: 12/31/17 09:00 Dose: 40 mg - Labs Labs: 12/31/17 07:55 12/31/17 07:55 Attending/Attestation - Attestation I have personally seen and examined this patient.: Yes I have fully participated in the care of the patient.: Yes I have reviewed all pertinent clinical information, including history, physical exam and plan: Yes Notes (Text): 12/31/17 14:59 Medical attending: Patient was seen and examined by me. Agree with the above note by the resident The patient was not in any acute distress when we saw him. He reported he still is coughing and also has minmal blood with the coughing present. He denied fevers, denied chills, At this moment we are still pending the AFB stain/cultures to return. Lab work is stable at this time. I explained to the patient that it may very well take a while before the studies return. On exam today I did not see the area of the PPD thank you Davin Curran
[2017-12-31 08:05] LABS: BASO # 0.1 K/uL (0.0-0.2); BASO % 0.7 % (0.0-2.0); EOS # 0.2 K/uL (0.0-0.7); LYMPH # 0.6 K/uL (1.0-4.3); LYMPH % 7.4 % (20.0-40.0); MEAN CELL VOLUME 88.2 fL (80.0-94.0); MEAN CORPUSCULAR HEMOGLOBIN 30.7 pg (27.0-31.0); MEAN CORPUSCULAR HGB CONC 34.9 g/dL (33.0-37.0); MEAN PLATELET VOLUME 7.8 fL (7.2-11.7); MONO # 1.7 K/uL (0.0-0.8); MONO % 20.6 % (0.0-10.0); NEUT # 5.6 K/uL (1.8-7.0); NEUT % 68.3 % (50.0-75.0); NRBC % 0.2 % (0.0-2.0); PLATELET COUNT 358 K/uL (130-400); RED CELL DISTRIBUTION WIDTH 12.4 % (11.5-14.5); WHITE BLOOD COUNT 8.2 K/uL (4.8-10.8)
[2017-12-31 08:25] LABS: BLOOD UREA NITROGEN 14 mg/dL (9-20); CALCIUM 9.1 mg/dl (8.6-10.4); GFR AFRICAN-AMERICAN > 60; GFR NON-AFRICAN AMERICAN > 60
[2017-12-31 08:41] LABS: EOSINOPHIL 4 % (0-4); LYMPHOCYTE 11 % (20-40); MONOCYTE 20 % (0-10); NEUTROPHIL 64 % (50-75); PLATELET ESTIMATE NORMAL (NORMAL); REACTIVE LYMPHOCYTES 1 % (0-0); TOTAL CELLS COUNTED 100
[2017-12-31] MEDS: Pantoprazole 40 mg EC Tab PO SCH (09:00)
[2017-12-31] MEDS: Azithromycin 500 MG in Sodium Chloride 0.9% 250 ML IVPB SCH (10:21)
--- NOTE | 2017-12-31 18:00 | CP.PCM.PN ---
Subjective - Date & Time of Evaluation Date of Evaluation: 12/31/17 Time of Evaluation: 08:00 - Subjective Subjective: denies fever AFB smears neg thus far IV antibiotics inprogress Objective - Vital Signs/Intake and Output Vital Signs (last 24 hours): Temp Pulse Resp BP Pulse Ox 98.2 F 72 18 127/74 99 12/31/17 15:00 12/31/17 15:00 12/31/17 15:00 12/31/17 15:00 12/31/17 15:00 Intake and Output: 12/31/17 12/31/17 06:59 18:59 Intake Total 300 750 Balance 300 750 - Medications Medications: Current Medications Acetaminophen (Tylenol 325mg Tab) 650 mg PO Q6 PRN PRN Reason: Fever >100.4 F Azithromycin 500 mg/ Sodium (Chloride) 250 mls @ 250 mls/hr IVPB DAILY ESTEE PRN Reason: Protocol Last Admin: 12/31/17 10:21 Dose: 250 mls/hr Ceftriaxone Sodium 1 gm/ (Sodium Chloride) 100 mls @ 100 mls/hr IVPB DAILY ESTEE PRN Reason: Protocol Last Admin: 12/31/17 09:00 Dose: 100 mls/hr Pantoprazole Sodium (Protonix Ec Tab) 40 mg PO DAILY ESTEE Last Admin: 12/31/17 09:00 Dose: 40 mg - Labs Labs: 12/31/17 07:55 12/31/17 07:55 - Constitutional Appears: Non-toxic, Chronically Ill - Head Exam Head Exam: NORMOCEPHALIC - Eye Exam Eye Exam: PERRL. absent: Scleral icterus - ENT Exam ENT Exam: Mucous Membranes Dry, Normal External Ear Exam - Neck Exam Neck Exam: absent: Lymphadenopathy - Respiratory Exam Respiratory Exam: Decreased Breath Sounds - Cardiovascular Exam Cardiovascular Exam: REGULAR RHYTHM - GI/Abdominal Exam GI & Abdominal Exam: Distended, Soft - Rectal Exam Rectal Exam: Deferred - Exam Exam: NORMAL INSPECTION - Extremities Exam Extremities Exam: absent: Pedal Edema - Back Exam Back Exam: absent: CVA tenderness (L), CVA tenderness (R) - Neurological Exam Neurological Exam: Alert, Awake, Oriented x3 Assessment and Plan (1) Cavitary lesion of lung Status: Acute (2) Hemoptysis Status: Acute - Assessment and Plan (Free Text) Assessment: if smears negative and quantiferon negative may need Pulm eval to r/o other etiologies if smears neg and quantiferon + would treat for MTB till cultures are finalized in 6 weeks and have prt follow up in clinic
--- NOTE | 2018-01-01 07:17 | CP.PCM.PN ---
<Orlando Frances - Last Filed: 01/01/18 13:30> Subjective - Date & Time of Evaluation Date of Evaluation: 01/01/18 Time of Evaluation: 07:10 - Subjective Subjective: Medicine progress note for Dr. Curran Patient seen and examined. Patient reports no hemoptysis overnight. Patient denies fever, chills, chest pain, dyspnea, abdominal pain, dysuria. No acute events overnight noted. Objective - Vital Signs/Intake and Output Vital Signs (last 24 hours): Temp Pulse Resp BP Pulse Ox 98.5 F 70 18 98/52 L 97 01/01/18 00:30 01/01/18 00:30 01/01/18 00:30 01/01/18 00:30 01/01/18 00:30 - Medications Medications: Current Medications Acetaminophen (Tylenol 325mg Tab) 650 mg PO Q6 PRN PRN Reason: Fever >100.4 F Azithromycin 500 mg/ Sodium (Chloride) 250 mls @ 250 mls/hr IVPB DAILY ESTEE PRN Reason: Protocol Last Admin: 12/31/17 10:21 Dose: 250 mls/hr Ceftriaxone Sodium 1 gm/ (Sodium Chloride) 100 mls @ 100 mls/hr IVPB DAILY ESTEE PRN Reason: Protocol Last Admin: 12/31/17 09:00 Dose: 100 mls/hr Pantoprazole Sodium (Protonix Ec Tab) 40 mg PO DAILY [facility] Last Admin: 12/31/17 09:00 Dose: 40 mg - Labs Labs: 12/31/17 07:55 12/31/17 07:55 - Additional Findings Additional findings: - Constitutional Appears: No Acute Distress - Head Exam Head Exam: ATRAUMATIC, NORMOCEPHALIC - Eye Exam Eye Exam: EOMI, PERRL - ENT Exam ENT Exam: Mucous Membranes Moist - Respiratory Exam Respiratory Exam: Clear to Auscultation Bilateral, NORMAL BREATHING PATTERN. absent: Rales, Rhonchi, Wheezes - Cardiovascular Exam Cardiovascular Exam: REGULAR RHYTHM, +S1, +S2 - GI/Abdominal Exam GI & Abdominal Exam: Normal Bowel Sounds, Soft. absent: Distended, Tenderness - Extremities Exam Extremities exam: Positive for: pedal pulses present. Negative for: pedal edema , tenderness - Neurological Exam Neurological exam: Alert, CN II-XII Intact, Oriented x3 - Psychiatric Exam Psychiatric exam: Normal Affect, Normal Mood - Skin Skin Exam: Dry, Warm Assessment and Plan - Assessment and Plan (Free Text) Plan: RUL Cavitary Lesions--likely Tuberculosis As seen prominently in CXR Droplet Isolation AFB sputum stain negative so far x2 f/u third AFB sputum stain PPD placed on admission--no induration sputum culture negative blood culture negative HIV screening negative Due to suspicion, HIV 4th generation panel ordered and was negative Azithromycin 500 mg IV daily for now started on 12/29 Ceftriaxone 1 gm IV daily for now started on 12/29 ID consult, Dr. Luis, help appreciated--will hold until positive AFB before starting TB medications * Per Dr. Luis, if the AFB & the quantiferon are negative, need to evaluate for other pulmonary etiologies * If smears negative but the quantiferon is positive, Dr. Luis recommends treating for TB until cultures are finalized in 6 weeks and have the patient follow up Chest CT w.o. contrast: * Patchy infiltrate posterior segment right upper lobe with eccentric cavitary lesion that appears to exhibit an air-fluid level. Prophylaxis Regular Diet Protonix 40 mg PO daily Contraindication for chemical VTE SCDs for now Droplet Isolation Disposition: Will await positive AFB sputum results before starting TB medications. There is a possibility of other bacterial causes for the cavitation. Discussed with Dr. Bina Frances PGY-1 <Davin Curran H - Last Filed: 01/01/18 14:55> Objective - Vital Signs/Intake and Output Vital Signs (last 24 hours): Temp Pulse Resp BP Pulse Ox 97.9 F 66 18 110/67 99 01/01/18 07:10 01/01/18 07:10 01/01/18 07:10 01/01/18 07:10 01/01/18 07:10 Intake and Output: 01/01/18 01/01/18 06:59 18:59 Intake Total 650 Balance 650 - Medications Medications: Current Medications Acetaminophen (Tylenol 325mg Tab) 650 mg PO Q6 PRN PRN Reason: Fever >100.4 F Azithromycin 500 mg/ Sodium (Chloride) 250 mls @ 250 mls/hr IVPB DAILY ESTEE PRN Reason: Protocol Last Admin: 01/01/18 10:27 Dose: 250 mls/hr Ceftriaxone Sodium 1 gm/ (Sodium Chloride) 100 mls @ 100 mls/hr IVPB DAILY ESTEE PRN Reason: Protocol Last Admin: 01/01/18 09:25 Dose: 100 mls/hr Pantoprazole Sodium (Protonix Ec Tab) 40 mg PO DAILY ESTEE Last Admin: 01/01/18 09:25 Dose: 40 mg - Labs Labs: 01/01/18 07:48 01/01/18 07:48 Attending/Attestation - Attestation I have personally seen and examined this patient.: Yes I have fully participated in the care of the patient.: Yes I have reviewed all pertinent clinical information, including history, physical exam and plan: Yes Notes (Text): 01/01/18 14:51 Medical attending : Patient was seen and examined by me. Agree with the above note by the resident So far two of the sputum AFB culture/stains returned and have been negative. Also the area of the PPD was not inflamed. I had a very hard time seeing it. It's possible that the patient has some sort of a staph infection. We are still pending the results of the qunterferon gold at this moment. Continue with the IV rocpehin and azithromycin for now. thank you Davin Curran
[2018-01-01 08:00] LABS: BASO % 0.5 % (0.0-2.0); EOS # 0.3 K/uL (0.0-0.7); EOS % 4.4 % (0.0-4.0); HEMOGLOBIN 14.9 g/dL (12.0-18.0); LYMPH # 0.8 K/uL (1.0-4.3); LYMPH % 13.2 % (20.0-40.0); MEAN CELL VOLUME 87.7 fL (80.0-94.0); MEAN CORPUSCULAR HEMOGLOBIN 30.7 pg (27.0-31.0); MEAN CORPUSCULAR HGB CONC 35.1 g/dL (33.0-37.0); MEAN PLATELET VOLUME 7.5 fL (7.2-11.7); MONO # 1.4 K/uL (0.0-0.8); MONO % 21.2 % (0.0-10.0); NEUT # 3.9 K/uL (1.8-7.0); NEUT % 60.7 % (50.0-75.0); PLATELET COUNT 372 K/uL (130-400); RBC 4.84 Mil/uL (4.40-5.90); RED CELL DISTRIBUTION WIDTH 12.5 % (11.5-14.5); WHITE BLOOD COUNT 6.4 K/uL (4.8-10.8)
[2018-01-01 08:17] LABS: BLOOD UREA NITROGEN 10 mg/dL (9-20); CALCIUM 8.9 mg/dl (8.6-10.4); GFR AFRICAN-AMERICAN > 60; GFR NON-AFRICAN AMERICAN > 60
[2018-01-01 08:43] LABS: EOSINOPHIL 4 % (0-4); LYMPHOCYTE 13 % (20-40); MONOCYTE 23 % (0-10); NEUTROPHIL 60 % (50-75); PLATELET ESTIMATE NORMAL (NORMAL); TOTAL CELLS COUNTED 100
[2018-01-01] MEDS: Pantoprazole 40 mg EC Tab PO SCH (09:25)
[2018-01-01] MEDS: Azithromycin 500 MG in Sodium Chloride 0.9% 250 ML IVPB SCH (10:27)
--- NOTE | 2018-01-01 18:09 | CP.PCM.PN ---
Subjective - Date & Time of Evaluation Date of Evaluation: 01/01/18 Time of Evaluation: 06:00 - Subjective Subjective: improving so far AFB neg await quantiferon Objective - Vital Signs/Intake and Output Vital Signs (last 24 hours): Temp Pulse Resp BP Pulse Ox 98.2 F 66 20 108/65 96 01/01/18 16:05 01/01/18 16:05 01/01/18 16:05 01/01/18 16:05 01/01/18 16:05 Intake and Output: 01/01/18 01/01/18 06:59 18:59 Intake Total 650 Balance 650 - Medications Medications: Current Medications Acetaminophen (Tylenol 325mg Tab) 650 mg PO Q6 PRN PRN Reason: Fever >100.4 F Azithromycin 500 mg/ Sodium (Chloride) 250 mls @ 250 mls/hr IVPB DAILY ESTEE PRN Reason: Protocol Last Admin: 01/01/18 10:27 Dose: 250 mls/hr Ceftriaxone Sodium 1 gm/ (Sodium Chloride) 100 mls @ 100 mls/hr IVPB DAILY ESTEE PRN Reason: Protocol Last Admin: 01/01/18 09:25 Dose: 100 mls/hr Pantoprazole Sodium (Protonix Ec Tab) 40 mg PO DAILY ESTEE Last Admin: 01/01/18 09:25 Dose: 40 mg - Labs Labs: 01/01/18 07:48 01/01/18 07:48 Assessment and Plan (1) Cavitary lesion of lung Status: Acute (2) Hemoptysis Status: Acute
[2018-01-02 08:32] LABS: BASO % 0.9 % (0.0-2.0); EOS # 0.3 K/uL (0.0-0.7); EOS % 5.4 % (0.0-4.0); HEMOGLOBIN 15.1 g/dL (12.0-18.0); LYMPH # 0.7 K/uL (1.0-4.3); LYMPH % 14.1 % (20.0-40.0); MEAN CELL VOLUME 87.9 fL (80.0-94.0); MEAN CORPUSCULAR HEMOGLOBIN 30.7 pg (27.0-31.0); MEAN CORPUSCULAR HGB CONC 34.9 g/dL (33.0-37.0); MEAN PLATELET VOLUME 7.3 fL (7.2-11.7); MONO # 1.2 K/uL (0.0-0.8); MONO % 22.2 % (0.0-10.0); NEUT % 57.4 % (50.0-75.0); NRBC % 0.1 % (0.0-2.0); PLATELET COUNT 397 K/uL (130-400); RBC 4.92 Mil/uL (4.40-5.90); RED CELL DISTRIBUTION WIDTH 12.4 % (11.5-14.5); WHITE BLOOD COUNT 5.2 K/uL (4.8-10.8)
[2018-01-02 08:41] LABS: BLOOD UREA NITROGEN 9 mg/dL (9-20)
[2018-01-02 08:42] LABS: CALCIUM 9.1 mg/dl (8.6-10.4); GFR AFRICAN-AMERICAN > 60; GFR NON-AFRICAN AMERICAN > 60
[2018-01-02 09:21] LABS: BASOPHIL 1 % (0-2); EOSINOPHIL 5 % (0-4); LYMPHOCYTE 10 % (20-40); MONOCYTE 17 % (0-10); NEUTROPHIL 67 % (50-75); PLATELET ESTIMATE NORMAL (NORMAL); TOTAL CELLS COUNTED 100
[2018-01-02 09:22] LABS: ANISOCYTOSIS SLIGHT
--- NOTE | 2018-01-02 10:57 | CP.PCM.PN ---
<ChynaBarbara - Last Filed: 01/02/18 15:33> Subjective - Date & Time of Evaluation Date of Evaluation: 01/02/18 Time of Evaluation: 15:33 - Subjective Subjective: Progress Note for Dr. Curran Patient seen and examined at bedside. PPD on right forearm was noted and measured. Patient denied fever, chills, hemoptysis, nausea, vomiting, numbness, tingling, headache, dizziness. Patient admitted to coughing. Objective - Vital Signs/Intake and Output Vital Signs (last 24 hours): Temp Pulse Resp BP Pulse Ox 97.9 F 60 18 104/66 97 01/02/18 07:00 01/02/18 07:00 01/02/18 07:00 01/02/18 07:00 01/02/18 07:00 Intake and Output: 01/02/18 01/02/18 06:59 18:59 Intake Total 800 Balance 800 - Medications Medications: Current Medications Acetaminophen (Tylenol 325mg Tab) 650 mg PO Q6 PRN PRN Reason: Fever >100.4 F Azithromycin 500 mg/ Sodium (Chloride) 250 mls @ 250 mls/hr IVPB DAILY [facility]EE PRN Reason: Protocol Last Admin: 01/01/18 10:27 Dose: 250 mls/hr Ceftriaxone Sodium 1 gm/ (Sodium Chloride) 100 mls @ 100 mls/hr IVPB DAILY ESTEE PRN Reason: Protocol Last Admin: 01/01/18 09:25 Dose: 100 mls/hr Pantoprazole Sodium (Protonix Ec Tab) 40 mg PO DAILY [facility] Last Admin: 01/01/18 09:25 Dose: 40 mg - Labs Labs: 01/02/18 08:19 01/02/18 08:19 - Additional Findings Additional findings: Constitutional Appears: No Acute Distress - Head Exam Head Exam: ATRAUMATIC, NORMOCEPHALIC - Eye Exam Eye Exam: EOMI, PERRL - ENT Exam ENT Exam: Mucous Membranes Moist - Respiratory Exam Respiratory Exam: Clear to Auscultation Bilateral, NORMAL BREATHING PATTERN. absent: Rales, Rhonchi, Wheezes - Cardiovascular Exam Cardiovascular Exam: REGULAR RHYTHM, +S1, +S2 - GI/Abdominal Exam GI & Abdominal Exam: Normal Bowel Sounds, Soft. absent: Distended, Tenderness - Extremities Exam Extremities exam: Positive for: pedal pulses present. Negative for: pedal edema , tenderness - Neurological Exam Neurological exam: Alert, CN II-XII Intact, Oriented x3 - Psychiatric Exam Psychiatric exam: Normal Affect, Normal Mood - Skin Skin Exam: Dry, Warm Assessment and Plan - Assessment and Plan (Free Text) Assessment: RUL Cavitary Lesions, possibility of Tuberculosis As seen prominently in CXR Droplet Isolation AFB sputum stain negative x3 PPD equivocal (Right forearm) sputum culture negative blood culture negative HIV screening negative Due to suspicion, HIV 4th generation panel ordered and was negative Azithromycin 500 mg IV daily for now started on 12/29 Ceftriaxone 1 gm IV daily for now started on 12/29 ID consult, Dr. Luis, help appreciated--will hold until positive AFB before starting TB medications * Per Dr. Luis, if the AFB & the quantiferon are negative, need to evaluate for other pulmonary etiologies * If smears negative but the quantiferon is positive, Dr. Luis recommends treating for TB until cultures are finalized in 6 weeks and have the patient follow up Chest CT w/o contrast * Patchy infiltrate posterior segment right upper lobe with eccentric cavitary lesion that appears to exhibit an air-fluid level. Prophylaxis Regular Diet Protonix 40 mg PO daily Contraindication for chemical VTE SCDs for now Droplet Isolation Disposition: Will await positive AFB sputum results and Quantiferon gold before starting TB medications. There is a possibility of other bacterial causes for the cavitation. Discussed with Dr. Curran <Davin Curran - Last Filed: 01/02/18 15:42> Objective - Vital Signs/Intake and Output Vital Signs (last 24 hours): Temp Pulse Resp BP Pulse Ox 97.9 F 60 18 104/66 97 01/02/18 07:00 01/02/18 07:00 01/02/18 07:00 01/02/18 07:00 01/02/18 07:00 Intake and Output: 01/02/18 01/02/18 06:59 18:59 Intake Total 800 Balance 800 - Medications Medications: Current Medications Acetaminophen (Tylenol 325mg Tab) 650 mg PO Q6 PRN PRN Reason: Fever >100.4 F Azithromycin 500 mg/ Sodium (Chloride) 250 mls @ 250 mls/hr IVPB DAILY ESTEE PRN Reason: Protocol Last Admin: 01/02/18 12:28 Dose: 250 mls/hr Ceftriaxone Sodium 1 gm/ (Sodium Chloride) 100 mls @ 100 mls/hr IVPB DAILY ESTEE PRN Reason: Protocol Last Admin: 01/02/18 11:00 Dose: 100 mls/hr Pantoprazole Sodium (Protonix Ec Tab) 40 mg PO DAILY [facility] Last Admin: 01/02/18 11:00 Dose: 40 mg - Labs Labs: 01/02/18 08:19 01/02/18 11:09 Attending/Attestation - Attestation I have personally seen and examined this patient.: Yes I have fully participated in the care of the patient.: Yes I have reviewed all pertinent clinical information, including history, physical exam and plan: Yes Notes (Text): 01/02/18 15:41 Medical attending: Patient was seen and examined by me, agrees the above note by certified medical coder. At this time the patient has 3 negative AFB stains. We tried to find the area of the PPD can, at this time I was able to see it, it measured almost 1 cm. Considering his travel history the PPD is almost an equivocal area. He hasn't lived in a foreign country for a long time but he did visit a foreign country almost 3 years ago. He reports that he's no longer coughing, is also denied having any hemoptysis or fevers. We still have him on the IV Rocephin and IV azithromycin this moment At this time were still waiting on the QuantiFERON gold testing to return. If he remains in droplet, airborne precaution room thank you Davin Curran
[2018-01-02] MEDS: Pantoprazole 40 mg EC Tab PO SCH (11:00)
[2018-01-02 11:29] LABS: ALBUMIN 3.6 g/dL (3.5-5.0); ALT/SGPT 25 U/L (21-72); AST/SGOT 32 U/L (17-59); BLOOD UREA NITROGEN 10 mg/dL (9-20); CALCIUM 9.1 mg/dl (8.6-10.4); GFR AFRICAN-AMERICAN > 60; GFR NON-AFRICAN AMERICAN > 60
[2018-01-02] MEDS: Azithromycin 500 MG in Sodium Chloride 0.9% 250 ML IVPB SCH (12:28)
--- NOTE | 2018-01-02 18:21 | CP.PCM.PN ---
Subjective - Date & Time of Evaluation Date of Evaluation: 01/02/18 Time of Evaluation: 09:00 - Subjective Subjective: all 3 AFB smears are negative would consider D/C on RIPE rx with follow up in TB clinic since TB Quantiferon may take several days Objective - Vital Signs/Intake and Output Vital Signs (last 24 hours): Temp Pulse Resp BP Pulse Ox 98.2 F 60 20 107/63 98 01/02/18 15:35 01/02/18 15:35 01/02/18 15:35 01/02/18 15:35 01/02/18 15:35 Intake and Output: 01/02/18 01/02/18 06:59 18:59 Intake Total 800 Balance 800 - Medications Medications: Current Medications Acetaminophen (Tylenol 325mg Tab) 650 mg PO Q6 PRN PRN Reason: Fever >100.4 F Azithromycin 500 mg/ Sodium (Chloride) 250 mls @ 250 mls/hr IVPB DAILY [facility]EE PRN Reason: Protocol Last Admin: 01/02/18 12:28 Dose: 250 mls/hr Ceftriaxone Sodium 1 gm/ (Sodium Chloride) 100 mls @ 100 mls/hr IVPB DAILY [facility] PRN Reason: Protocol Last Admin: 01/02/18 11:00 Dose: 100 mls/hr Pantoprazole Sodium (Protonix Ec Tab) 40 mg PO DAILY [facility] Last Admin: 01/02/18 11:00 Dose: 40 mg - Labs Labs: 01/02/18 08:19 01/02/18 11:09 - Constitutional Appears: Non-toxic, Chronically Ill - Head Exam Head Exam: NORMOCEPHALIC - Eye Exam Eye Exam: PERRL - ENT Exam ENT Exam: Mucous Membranes Dry - Neck Exam Neck Exam: absent: Lymphadenopathy - Respiratory Exam Respiratory Exam: Decreased Breath Sounds - Cardiovascular Exam Cardiovascular Exam: REGULAR RHYTHM - GI/Abdominal Exam GI & Abdominal Exam: Distended, Soft - Rectal Exam Rectal Exam: Deferred - Exam Exam: NORMAL INSPECTION - Extremities Exam Extremities Exam: absent: Pedal Edema Assessment and Plan (1) Cavitary lesion of lung Status: Acute (2) Hemoptysis Status: Acute
[2018-01-03 08:26] LABS: BASO % 0.8 % (0.0-2.0); EOS # 0.3 K/uL (0.0-0.7); EOS % 6.2 % (0.0-4.0); HEMOGLOBIN 15.6 g/dL (12.0-18.0); LYMPH % 19.5 % (20.0-40.0); MEAN CELL VOLUME 87.7 fL (80.0-94.0); MEAN CORPUSCULAR HEMOGLOBIN 30.2 pg (27.0-31.0); MEAN CORPUSCULAR HGB CONC 34.4 g/dL (33.0-37.0); MEAN PLATELET VOLUME 7.3 fL (7.2-11.7); MONO # 0.7 K/uL (0.0-0.8); MONO % 14.1 % (0.0-10.0); NEUT % 59.4 % (50.0-75.0); NRBC % 0.2 % (0.0-2.0); RBC 5.16 Mil/uL (4.40-5.90); RED CELL DISTRIBUTION WIDTH 12.3 % (11.5-14.5)
[2018-01-03 08:45] LABS: ALBUMIN 3.7 g/dL (3.5-5.0); ALT/SGPT 27 U/L (21-72); AST/SGOT 35 U/L (17-59); BLOOD UREA NITROGEN 10 mg/dL (9-20); CALCIUM 9.3 mg/dl (8.6-10.4); GFR AFRICAN-AMERICAN > 60; GFR NON-AFRICAN AMERICAN > 60
--- NOTE | 2018-01-03 10:16 | RAD ---
Chest x-ray two views History: Pneumonia with cavitation. Comparison: 12/29/2017 Findings: Persistent but improved patchy infiltrate seen at the level of the right lung apex/upper left lung with associated prominent central cavitation. Remainder of the lung diego appear grossly preserved. Heart size within normal limits. Impression: Persistent but improved patchy infiltrate seen at the level of the right lung apex/upper left lung with associated prominent central cavitation.
--- NOTE | 2018-01-03 10:22 | CP.PCM.PN ---
<Joselin Aparicio DO - Last Filed: 01/03/18 10:22> Subjective - Date & Time of Evaluation Date of Evaluation: 01/03/18 Time of Evaluation: 10:22 - Subjective Subjective: Medicine progress note for Dr. Curran's service Patient seen and examined. Patient denies fevers, chills, night sweats, nausea, vomiting. Patient states he is feeling a little better. Patient denies recent hemoptysis Objective - Vital Signs/Intake and Output Vital Signs (last 24 hours): Temp Pulse Resp BP Pulse Ox 97.7 F 55 L 18 100/61 98 01/03/18 07:10 01/03/18 07:10 01/03/18 07:10 01/03/18 07:10 01/03/18 07:10 Intake and Output: 01/03/18 01/03/18 06:59 18:59 Intake Total 600 Balance 600 - Medications Medications: Current Medications Acetaminophen (Tylenol 325mg Tab) 650 mg PO Q6 PRN PRN Reason: Fever >100.4 F Ethambutol HCl (Myambutol) 1,200 mg PO DAILY ESTEE PRN Reason: Protocol Azithromycin 500 mg/ Sodium (Chloride) 250 mls @ 250 mls/hr IVPB DAILY ESTEE PRN Reason: Protocol Last Admin: 01/02/18 12:28 Dose: 250 mls/hr Ceftriaxone Sodium 1 gm/ (Sodium Chloride) 100 mls @ 100 mls/hr IVPB DAILY ESTEE PRN Reason: Protocol Last Admin: 01/02/18 11:00 Dose: 100 mls/hr Isoniazid (Niazid) 300 mg PO DAILY ESTEE PRN Reason: Protocol Pantoprazole Sodium (Protonix Ec Tab) 40 mg PO DAILY [facility] Last Admin: 01/02/18 11:00 Dose: 40 mg Pyrazinamide (Pyrazinamide) 1,000 mg PO DAILY ESTEE PRN Reason: Protocol Rifampin (Rifampin Cap) 600 mg PO DAILY ESTEE PRN Reason: Protocol Thiamine HCl (Vitamin B1 Tab) 100 mg PO DAILY [facility] - Labs Labs: 01/03/18 08:15 01/03/18 08:15 - Constitutional Appears: No Acute Distress - Head Exam Head Exam: ATRAUMATIC, NORMOCEPHALIC - Eye Exam Eye Exam: EOMI - ENT Exam ENT Exam: Mucous Membranes Moist - Respiratory Exam Respiratory Exam: Clear to Ausculation Bilateral - Cardiovascular Exam Cardiovascular Exam: +S1, +S2 - GI/Abdominal Exam GI & Abdominal Exam: Soft, Normal Bowel Sounds. absent: Tenderness - Extremities Exam Extremities Exam: Normal Inspection - Neurological Exam Neurological Exam: Alert, Awake - Psychiatric Exam Psychiatric exam: Normal Affect - Skin Skin Exam: Warm Assessment and Plan - Assessment and Plan (Free Text) Assessment: RUL Cavitary Lesions, possibility of Tuberculosis CXR 01/02/18: persistent but improved patchy infiltrate seen at the level of the right lung apex/ upper left lung with associated prominent central cavitation Continue droplet Isolation AFB sputum stain negative x3 PPD equivocal (Right forearm) 12/29/17: sputum culture negative blood culture negative HIV screening negative Due to suspicion, HIV 4th generation panel ordered and was negative continue antibiotics: Azithromycin 500 mg IV daily for now started on 12/29 Ceftriaxone 1 gm IV daily for now started on 12/29 ID consult, Dr. Luis, help appreciated--will hold until positive AFB before starting TB medications * Per Dr. Luis, if the AFB & the quantiferon are negative, need to evaluate for other pulmonary etiologies * If smears negative but the quantiferon is positive, Dr. Luis recommends treating for TB until cultures are finalized in 6 weeks and have the patient follow up * RIPE therapy to start 01/03/18, patient will need follow up with TB/Chest Clinic Chest CT w/o contrast * Patchy infiltrate posterior segment right upper lobe with eccentric cavitary lesion that appears to exhibit an air-fluid level. Prophylaxis Regular Diet Protonix 40 mg PO daily Contraindication for chemical VTE SCDs Droplet Isolation Disposition: Starting RIPE therapy until quantiferon results, patient will need follow up with chest/ TB clinic Discussed with Dr. Curran <Davin Curran - Last Filed: 01/03/18 10:53> Objective - Vital Signs/Intake and Output Vital Signs (last 24 hours): Temp Pulse Resp BP Pulse Ox 97.7 F 55 L 18 100/61 98 01/03/18 07:10 01/03/18 07:10 01/03/18 07:10 01/03/18 07:10 01/03/18 07:10 Intake and Output: 01/03/18 01/03/18 06:59 18:59 Intake Total 600 Balance 600 - Medications Medications: Current Medications Acetaminophen (Tylenol 325mg Tab) 650 mg PO Q6 PRN PRN Reason: Fever >100.4 F Ethambutol HCl (Myambutol) 1,200 mg PO DAILY [facility]EE PRN Reason: Protocol Last Admin: 01/03/18 10:37 Dose: 1,200 mg Azithromycin 500 mg/ Sodium (Chloride) 250 mls @ 250 mls/hr IVPB DAILY ESTEE PRN Reason: Protocol Last Admin: 01/03/18 10:37 Dose: 250 mls/hr Ceftriaxone Sodium 1 gm/ (Sodium Chloride) 100 mls @ 100 mls/hr IVPB DAILY ESTEE PRN Reason: Protocol Last Admin: 01/03/18 10:38 Dose: 100 mls/hr Isoniazid (Niazid) 300 mg PO DAILY ESTEE PRN Reason: Protocol Last Admin: 01/03/18 10:37 Dose: 300 mg Pantoprazole Sodium (Protonix Ec Tab) 40 mg PO DAILY [facility] Last Admin: 01/03/18 10:37 Dose: 40 mg Pyrazinamide (Pyrazinamide) 1,000 mg PO DAILY ESTEE PRN Reason: Protocol Last Admin: 01/03/18 10:37 Dose: 1,000 mg Rifampin (Rifampin Cap) 600 mg PO DAILY ESTEE PRN Reason: Protocol Last Admin: 01/03/18 10:37 Dose: 600 mg Thiamine HCl (Vitamin B1 Tab) 100 mg PO DAILY [facility] Last Admin: 01/03/18 10:37 Dose: 100 mg - Labs Labs: 01/03/18 08:15 01/03/18 08:15 Attending/Attestation - Attestation I have personally seen and examined this patient.: Yes I have fully participated in the care of the patient.: Yes I have reviewed all pertinent clinical information, including history, physical exam and plan: Yes Notes (Text): 01/03/18 10:51 Medical attending: Patient was seen and examined by me. Agree with the above note by the resident The patient was not in any acute distress when I saw and examined him. He reported no events overnight. He stated coughing was much less. Denied fevers and chills Daniella matias is still on back yet The patient will be starting RIPE treatment sometime today. thank you Davin Curran
[2018-01-03] MEDS: Pantoprazole 40 mg EC Tab PO SCH (10:37)
[2018-01-03] MEDS: Azithromycin 500 MG in Sodium Chloride 0.9% 250 ML IVPB SCH (10:37)
[2018-01-04 07:48] LABS: BASO # 0.1 K/uL (0.0-0.2); BASO % 0.9 % (0.0-2.0); EOS # 0.3 K/uL (0.0-0.7); EOS % 5.8 % (0.0-4.0); HEMOGLOBIN 15.3 g/dL (12.0-18.0); LYMPH % 16.2 % (20.0-40.0); MEAN CELL VOLUME 88.1 fL (80.0-94.0); MEAN CORPUSCULAR HEMOGLOBIN 30.2 pg (27.0-31.0); MEAN CORPUSCULAR HGB CONC 34.4 g/dL (33.0-37.0); MEAN PLATELET VOLUME 7.4 fL (7.2-11.7); MONO # 0.8 K/uL (0.0-0.8); MONO % 13.4 % (0.0-10.0); NEUT # 3.8 K/uL (1.8-7.0); NEUT % 63.7 % (50.0-75.0); RBC 5.07 Mil/uL (4.40-5.90); RED CELL DISTRIBUTION WIDTH 12.1 % (11.5-14.5)
[2018-01-04 08:27] LABS: ALBUMIN 3.5 g/dL (3.5-5.0); ALT/SGPT 24 U/L (21-72); AST/SGOT 20 U/L (17-59); BLOOD UREA NITROGEN 13 mg/dL (9-20); CALCIUM 9.1 mg/dl (8.6-10.4); GFR AFRICAN-AMERICAN > 60; GFR NON-AFRICAN AMERICAN > 60
--- NOTE | 2018-01-04 09:54 | CP.PCM.PN ---
<Joselin Aparicio DO - Last Filed: 01/04/18 10:37> Subjective - Date & Time of Evaluation Date of Evaluation: 01/04/18 Time of Evaluation: 09:54 - Subjective Subjective: Medicine progress note for Dr. Curran's service Patient seen and examined. Patient resting comfortably in bed. Patient denies fever/ chills. Patient denies night sweats. Patient reports good appetite and denies nause, vomiting, fever, chills. Objective - Vital Signs/Intake and Output Vital Signs (last 24 hours): Temp Pulse Resp BP Pulse Ox 98.1 F 65 20 111/73 98 01/04/18 07:00 01/04/18 07:00 01/04/18 07:00 01/04/18 07:00 01/04/18 07:00 Intake and Output: 01/04/18 01/04/18 06:59 18:59 Intake Total 800 Balance 800 - Medications Medications: Current Medications Acetaminophen (Tylenol 325mg Tab) 650 mg PO Q6 PRN PRN Reason: Fever >100.4 F Ethambutol HCl (Myambutol) 1,200 mg PO DAILY [facility]EE PRN Reason: Protocol Last Admin: 01/03/18 10:37 Dose: 1,200 mg Azithromycin 500 mg/ Sodium (Chloride) 250 mls @ 250 mls/hr IVPB DAILY [facility]EE PRN Reason: Protocol Last Admin: 01/03/18 10:37 Dose: 250 mls/hr Ceftriaxone Sodium 1 gm/ (Sodium Chloride) 100 mls @ 100 mls/hr IVPB DAILY ESTEE PRN Reason: Protocol Last Admin: 01/03/18 10:38 Dose: 100 mls/hr Isoniazid (Niazid) 300 mg PO DAILY ESTEE PRN Reason: Protocol Last Admin: 01/03/18 10:37 Dose: 300 mg Pantoprazole Sodium (Protonix Ec Tab) 40 mg PO DAILY [facility] Last Admin: 01/03/18 10:37 Dose: 40 mg Pyrazinamide (Pyrazinamide) 1,000 mg PO DAILY [facility]EE PRN Reason: Protocol Last Admin: 01/03/18 10:37 Dose: 1,000 mg Rifampin (Rifampin Cap) 600 mg PO DAILY [facility]EE PRN Reason: Protocol Last Admin: 01/03/18 10:37 Dose: 600 mg Thiamine HCl (Vitamin B1 Tab) 100 mg PO DAILY [facility] Last Admin: 01/03/18 10:37 Dose: 100 mg - Labs Labs: 01/04/18 07:38 01/04/18 07:38 - Constitutional Appears: No Acute Distress - Head Exam Head Exam: ATRAUMATIC, NORMOCEPHALIC - Eye Exam Eye Exam: EOMI - ENT Exam ENT Exam: Mucous Membranes Moist - Respiratory Exam Respiratory Exam: Clear to Ausculation Bilateral, NORMAL BREATHING PATTERN - Cardiovascular Exam Cardiovascular Exam: +S1, +S2 - GI/Abdominal Exam GI & Abdominal Exam: Soft, Normal Bowel Sounds. absent: Tenderness - Extremities Exam Extremities Exam: Normal Inspection. absent: Calf Tenderness, Pedal Edema - Neurological Exam Neurological Exam: Alert, Awake - Psychiatric Exam Psychiatric exam: Normal Affect - Skin Skin Exam: Warm Assessment and Plan - Assessment and Plan (Free Text) Assessment: RUL Cavitary Lesions, possibility of Tuberculosis CXR 01/02/18: persistent but improved patchy infiltrate seen at the level of the right lung apex/ upper left lung with associated prominent central cavitation Continue droplet Isolation AFB sputum stain negative x3 PPD equivocal (Right forearm) 12/29/17: sputum culture negative blood culture negative HIV screening negative Due to suspicion, HIV 4th generation panel ordered and was negative continue antibiotics: Azithromycin 500 mg IV daily for now started on 12/29 Ceftriaxone 1 gm IV daily for now started on 12/29 ID consult, Dr. Luis, help appreciated--will hold until positive AFB before starting TB medications * Per Dr. Luis, if the AFB & the quantiferon are negative, need to evaluate for other pulmonary etiologies * If smears negative but the quantiferon is positive, Dr. Luis recommends treating for TB until cultures are finalized in 6 weeks and have the patient follow up * RIPE therapy started on 01/03/18, patient will need follow up with TB/Chest Clinic, LFTs stable Chest CT w/o contrast * Patchy infiltrate posterior segment right upper lobe with eccentric cavitary lesion that appears to exhibit an air-fluid level. Prophylaxis Regular Diet Protonix 40 mg PO daily Contraindication for chemical VTE SCDs Droplet Isolation Disposition: Starting RIPE therapy until quantiferon results, patient will need follow up with chest/ TB clinic Discussed with Dr. Curran <Davin Curran - Last Filed: 01/04/18 11:37> Objective - Vital Signs/Intake and Output Vital Signs (last 24 hours): Temp Pulse Resp BP Pulse Ox 98.1 F 65 20 111/73 98 01/04/18 07:00 01/04/18 07:00 01/04/18 07:00 01/04/18 07:00 01/04/18 07:00 Intake and Output: 01/04/18 01/04/18 06:59 18:59 Intake Total 800 Balance 800 - Medications Medications: Current Medications Acetaminophen (Tylenol 325mg Tab) 650 mg PO Q6 PRN PRN Reason: Fever >100.4 F Ethambutol HCl (Myambutol) 1,200 mg PO DAILY [facility] PRN Reason: Protocol Last Admin: 01/04/18 10:42 Dose: 1,200 mg Azithromycin 500 mg/ Sodium (Chloride) 250 mls @ 250 mls/hr IVPB DAILY [facility] PRN Reason: Protocol Last Admin: 01/04/18 10:43 Dose: 250 mls/hr Ceftriaxone Sodium 1 gm/ (Sodium Chloride) 100 mls @ 100 mls/hr IVPB DAILY [facility] PRN Reason: Protocol Last Admin: 01/04/18 10:42 Dose: 100 mls/hr Isoniazid (Niazid) 300 mg PO DAILY [facility]EE PRN Reason: Protocol Last Admin: 01/04/18 10:42 Dose: 300 mg Pantoprazole Sodium (Protonix Ec Tab) 40 mg PO DAILY [facility] Last Admin: 01/04/18 10:42 Dose: 40 mg Pyrazinamide (Pyrazinamide) 1,000 mg PO DAILY [facility]EE PRN Reason: Protocol Last Admin: 01/04/18 10:42 Dose: 1,000 mg Rifampin (Rifampin Cap) 600 mg PO DAILY [facility] PRN Reason: Protocol Last Admin: 01/04/18 10:42 Dose: 600 mg Thiamine HCl (Vitamin B1 Tab) 100 mg PO DAILY [facility] Last Admin: 01/04/18 10:42 Dose: 100 mg - Labs Labs: 01/04/18 07:38 01/04/18 07:38 Attending/Attestation - Attestation I have personally seen and examined this patient.: Yes I have fully participated in the care of the patient.: Yes I have reviewed all pertinent clinical information, including history, physical exam and plan: Yes Notes (Text): Medical attending: Patient was seen and examined by me. Agree with the above note by the resident Currently no acute changes overnight occurred. The patient denied coughing and also denied coughing up blood. We have to see on Friday what options are available too social and case workers. The patient will need outpatient follow up at chest clinic thank you Davin Curran
[2018-01-04] MEDS: Pantoprazole 40 mg EC Tab PO SCH (10:42)
[2018-01-04] MEDS: Azithromycin 500 MG in Sodium Chloride 0.9% 250 ML IVPB SCH (10:43)
--- NOTE | 2018-01-04 15:46 | CP.PCM.PN ---
Subjective - Date & Time of Evaluation Date of Evaluation: 01/04/18 Time of Evaluation: 08:00 - Subjective Subjective: TOLERATING TB MEDS CXR NOTED CONT RX PENDING FINAL CULTURES OF TB WHICH TAKE 6 WEEKS Objective - Vital Signs/Intake and Output Vital Signs (last 24 hours): Temp Pulse Resp BP Pulse Ox 98.1 F 65 20 111/73 98 01/04/18 07:00 01/04/18 07:00 01/04/18 07:00 01/04/18 07:00 01/04/18 07:00 Intake and Output: 01/04/18 01/04/18 06:59 18:59 Intake Total 800 750 Balance 800 750 - Medications Medications: Current Medications Acetaminophen (Tylenol 325mg Tab) 650 mg PO Q6 PRN PRN Reason: Fever >100.4 F Ethambutol HCl (Myambutol) 1,200 mg PO DAILY [facility]EE PRN Reason: Protocol Last Admin: 01/04/18 10:42 Dose: 1,200 mg Azithromycin 500 mg/ Sodium (Chloride) 250 mls @ 250 mls/hr IVPB DAILY [facility]EE PRN Reason: Protocol Last Admin: 01/04/18 10:43 Dose: 250 mls/hr Ceftriaxone Sodium 1 gm/ (Sodium Chloride) 100 mls @ 100 mls/hr IVPB DAILY [facility]EE PRN Reason: Protocol Last Admin: 01/04/18 10:42 Dose: 100 mls/hr Isoniazid (Niazid) 300 mg PO DAILY ESTEE PRN Reason: Protocol Last Admin: 01/04/18 10:42 Dose: 300 mg Pantoprazole Sodium (Protonix Ec Tab) 40 mg PO DAILY [facility]EE Last Admin: 01/04/18 10:42 Dose: 40 mg Pyrazinamide (Pyrazinamide) 1,000 mg PO DAILY ESTEE PRN Reason: Protocol Last Admin: 01/04/18 10:42 Dose: 1,000 mg Rifampin (Rifampin Cap) 600 mg PO DAILY ESTEE PRN Reason: Protocol Last Admin: 01/04/18 10:42 Dose: 600 mg Thiamine HCl (Vitamin B1 Tab) 100 mg PO DAILY [facility]EE Last Admin: 01/04/18 10:42 Dose: 100 mg - Labs Labs: 01/04/18 07:38 01/04/18 07:38 Assessment and Plan (1) Cavitary lesion of lung Status: Acute (2) Hemoptysis Status: Acute
[2018-01-05 07:49] LABS: BASO # 0.1 K/uL (0.0-0.2); BASO % 0.8 % (0.0-2.0); EOS # 0.4 K/uL (0.0-0.7); EOS % 6.2 % (0.0-4.0); HEMOGLOBIN 15.4 g/dL (12.0-18.0); LYMPH # 1.1 K/uL (1.0-4.3); LYMPH % 16.1 % (20.0-40.0); MEAN CELL VOLUME 87.3 fL (80.0-94.0); MEAN CORPUSCULAR HEMOGLOBIN 30.5 pg (27.0-31.0); MEAN PLATELET VOLUME 7.3 fL (7.2-11.7); MONO # 0.7 K/uL (0.0-0.8); MONO % 10.6 % (0.0-10.0); NEUT # 4.5 K/uL (1.8-7.0); NEUT % 66.3 % (50.0-75.0); NRBC % 0.1 % (0.0-2.0); RBC 5.05 Mil/uL (4.40-5.90); RED CELL DISTRIBUTION WIDTH 12.2 % (11.5-14.5); WHITE BLOOD COUNT 6.7 K/uL (4.8-10.8)
[2018-01-05 08:09] LABS: ALBUMIN 3.5 g/dL (3.5-5.0); ALT/SGPT 19 U/L (21-72); AST/SGOT 20 U/L (17-59); BLOOD UREA NITROGEN 13 mg/dL (9-20); GFR AFRICAN-AMERICAN > 60; GFR NON-AFRICAN AMERICAN > 60
[2018-01-05] MEDS: Pantoprazole 40 mg EC Tab PO SCH (09:39)
[2018-01-05] MEDS: Azithromycin 500 MG in Sodium Chloride 0.9% 250 ML IVPB SCH (11:00)
--- NOTE | 2018-01-05 14:38 | CP.PCM.PN ---
<Joselni Freed - Last Filed: 01/05/18 14:35> Subjective - Date & Time of Evaluation Date of Evaluation: 01/05/18 Time of Evaluation: 07:30 - Subjective Subjective: Patient seen and examined at bedside. Patient resting comfortably in bed with no new complaints at this time. Patient is aware of his TB results up to this point. Currently denies fever, chills, chest pain, SOB, abdominal pain, nausea, vomiting, diarrhea, constipation, leg pain, and leg swelling. Objective - Vital Signs/Intake and Output Vital Signs (last 24 hours): Temp Pulse Resp BP Pulse Ox 97.6 F 69 20 115/68 97 01/05/18 08:08 01/05/18 08:08 01/05/18 08:08 01/05/18 08:08 01/05/18 08:08 Intake and Output: 01/05/18 01/05/18 06:59 18:59 Intake Total 1000 Balance 1000 - Medications Medications: Current Medications Acetaminophen (Tylenol 325mg Tab) 650 mg PO Q6 PRN PRN Reason: Fever >100.4 F Ethambutol HCl (Myambutol) 1,200 mg PO DAILY ESTEE PRN Reason: Protocol Last Admin: 01/05/18 09:39 Dose: 1,200 mg Azithromycin 500 mg/ Sodium (Chloride) 250 mls @ 250 mls/hr IVPB DAILY ESTEE PRN Reason: Protocol Last Admin: 01/05/18 11:00 Dose: 250 mls/hr Ceftriaxone Sodium 1 gm/ (Sodium Chloride) 100 mls @ 100 mls/hr IVPB DAILY ESTEE PRN Reason: Protocol Last Admin: 01/05/18 09:38 Dose: 100 mls/hr Isoniazid (Niazid) 300 mg PO DAILY ESTEE PRN Reason: Protocol Last Admin: 01/05/18 09:39 Dose: 300 mg Pantoprazole Sodium (Protonix Ec Tab) 40 mg PO DAILY ESTEE Last Admin: 01/05/18 09:39 Dose: 40 mg Pyrazinamide (Pyrazinamide) 1,000 mg PO DAILY ESTEE PRN Reason: Protocol Last Admin: 01/05/18 09:39 Dose: 1,000 mg Rifampin (Rifampin Cap) 600 mg PO DAILY ESTEE PRN Reason: Protocol Last Admin: 01/05/18 09:39 Dose: 600 mg Thiamine HCl (Vitamin B1 Tab) 100 mg PO DAILY ESTEE Last Admin: 01/05/18 09:39 Dose: 100 mg - Labs Labs: 01/05/18 07:43 01/05/18 07:43 - Constitutional Appears: Well - Head Exam Head Exam: ATRAUMATIC, NORMAL INSPECTION, NORMOCEPHALIC - Eye Exam Eye Exam: EOMI, Normal appearance, PERRL Pupil Exam: NORMAL ACCOMODATION, PERRL - ENT Exam ENT Exam: Mucous Membranes Moist, Normal Exam - Neck Exam Neck Exam: Full ROM, Normal Inspection. absent: Lymphadenopathy - Respiratory Exam Respiratory Exam: Clear to Ausculation Bilateral, NORMAL BREATHING PATTERN - Cardiovascular Exam Cardiovascular Exam: REGULAR RHYTHM, +S1, +S2. absent: Murmur - GI/Abdominal Exam GI & Abdominal Exam: Soft, Normal Bowel Sounds. absent: Distended, Tenderness - Extremities Exam Extremities Exam: Full ROM, Normal Capillary Refill, Normal Inspection. absent : Joint Swelling, Pedal Edema - Back Exam Back Exam: NORMAL INSPECTION - Neurological Exam Neurological Exam: Alert, Awake, Oriented x3 - Psychiatric Exam Psychiatric exam: Normal Affect, Normal Mood - Skin Skin Exam: Dry, Intact, Normal Color, Warm Assessment and Plan - Assessment and Plan (Free Text) Plan: Disposition: RIPE therapy until ABF cultures and quantiferon negative, patient is being evaluated for chest/ TB clinic today and will likely go tomorrow or Friday (on RIPE therapy and augmentin) RUL Cavitary Lesions, possibility of Tuberculosis * CXR 01/02/18: persistent but improved patchy infiltrate seen at the level of the right lung apex/ upper left lung with associated prominent central cavitation * Chest CT w/o contrast: Patchy infiltrate posterior segment right upper lobe with eccentric cavitary lesion that appears to exhibit an air-fluid level. * Continue droplet Isolation * AFB sputum stain negative x3 * PPD equivocal (Right forearm) * 12/29/17: sputum culture negative * blood culture negative * HIV screening negative * Due to suspicion, HIV 4th generation panel ordered and was negative Meds: Azithromycin 500 mg IV daily for now started on 12/29 Ceftriaxone 1 gm IV daily for now started on 12/29 RIPE therapy (started 01/03) - Dr. 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 <Adrián Spicer - Last Filed: 01/05/18 18:39> Objective - Vital Signs/Intake and Output Vital Signs (last 24 hours): Temp Pulse Resp BP Pulse Ox 98.2 F 60 18 113/73 100 01/05/18 15:56 01/05/18 15:56 01/05/18 15:56 01/05/18 15:56 01/05/18 15:56 Intake and Output: 01/05/18 01/05/18 06:59 18:59 Intake Total 1000 Balance 1000 - Medications Medications: Current Medications Acetaminophen (Tylenol 325mg Tab) 650 mg PO Q6 PRN PRN Reason: Fever >100.4 F Ethambutol HCl (Myambutol) 1,200 mg PO DAILY ESTEE PRN Reason: Protocol Last Admin: 01/05/18 09:39 Dose: 1,200 mg Azithromycin 500 mg/ Sodium (Chloride) 250 mls @ 250 mls/hr IVPB DAILY ESTEE PRN Reason: Protocol Last Admin: 01/05/18 11:00 Dose: 250 mls/hr Ceftriaxone Sodium 1 gm/ (Sodium Chloride) 100 mls @ 100 mls/hr IVPB DAILY ESTEE PRN Reason: Protocol Last Admin: 01/05/18 09:38 Dose: 100 mls/hr Isoniazid (Niazid) 300 mg PO DAILY ESTEE PRN Reason: Protocol Last Admin: 01/05/18 09:39 Dose: 300 mg Pantoprazole Sodium (Protonix Ec Tab) 40 mg PO DAILY ESTEE Last Admin: 01/05/18 09:39 Dose: 40 mg Pyrazinamide (Pyrazinamide) 1,000 mg PO DAILY ESTEE PRN Reason: Protocol Last Admin: 01/05/18 09:39 Dose: 1,000 mg Rifampin (Rifampin Cap) 600 mg PO DAILY ESTEE PRN Reason: Protocol Last Admin: 01/05/18 09:39 Dose: 600 mg Thiamine HCl (Vitamin B1 Tab) 100 mg PO DAILY ESTEE Last Admin: 01/05/18 09:39 Dose: 100 mg - Labs Labs: 01/05/18 07:43 01/05/18 07:43 Attending/Attestation - Attestation I have personally seen and examined this patient.: Yes I have fully participated in the care of the patient.: Yes I have reviewed all pertinent clinical information, including history, physical exam and plan: Yes Notes (Text): Patient was seen and examined no complain,no fever,no hemoptysis no sob 1. RUL Cavitary Lesions, possibility of Tuberculosis RIPE therapy until ABF cultures negative, patient is being evaluated for chest / TB clinic today.likely discharge tomorrow or Friday on RIPE and oral antibiotics AFB sputum stain negative x3 His sputum culture negative,blood culture negative,HIV screening negative and Due to suspicion, HIV 4th generation panel ordered and was negative. I agree with the resident's documentation of the assessment and the plan
[2018-01-06 00:33] VITALS: RESP 20; TEMP 97.9; O2SAT 98
[2018-01-06 07:41] VITALS: BP 112/69; PULSE 56
[2018-01-06 08:08] LABS: BASO # 0.1 K/uL (0.0-0.2); EOS # 0.4 K/uL (0.0-0.7); HEMOGLOBIN 15.4 g/dL (12.0-18.0); LYMPH % 16.2 % (20.0-40.0); MEAN CELL VOLUME 87.4 fL (80.0-94.0); MEAN CORPUSCULAR HEMOGLOBIN 30.3 pg (27.0-31.0); MEAN CORPUSCULAR HGB CONC 34.7 g/dL (33.0-37.0); MEAN PLATELET VOLUME 7.2 fL (7.2-11.7); MONO # 0.6 K/uL (0.0-0.8); MONO % 9.2 % (0.0-10.0); NEUT # 4.2 K/uL (1.8-7.0); NEUT % 66.6 % (50.0-75.0); NRBC % 0.4 % (0.0-2.0); RBC 5.07 Mil/uL (4.40-5.90); WHITE BLOOD COUNT 6.3 K/uL (4.8-10.8)
[2018-01-06 09:24] LABS: ALBUMIN 3.6 g/dL (3.5-5.0); ALT/SGPT 16 U/L (21-72); AST/SGOT 31 U/L (17-59); BLOOD UREA NITROGEN 13 mg/dL (9-20); CALCIUM 9.2 mg/dl (8.6-10.4); GFR AFRICAN-AMERICAN > 60; GFR NON-AFRICAN AMERICAN > 60
[2018-01-06] MEDS: Pantoprazole 40 mg EC Tab PO SCH (09:32)
[2018-01-06] MEDS: Azithromycin 500 MG in Sodium Chloride 0.9% 250 ML IVPB SCH (10:49)
--- NOTE | 2018-01-06 14:26 | CP.PCM.DIS ---
Provider - Provider Date of Admission: 12/29/17 13:38 Attending physician: Davin Curran DO Consults: Dr. Luis Time Spent in preparation of Discharge (in minutes): 35 Diagnosis - Discharge Diagnosis (1) Cavitary lesion of lung Status: Acute Hospital Course - Lab Results Lab Results: Micro Results 12/29/17 16:15 Blood Blood Culture - Final NO GROWTH AFTER 5 DAYS 12/29/17 16:15 Blood Gram Stain - Final TEST NOT PERFORMED 12/29/17 16:15 Blood Blood Culture - Final NO GROWTH AFTER 5 DAYS 12/29/17 16:15 Blood Gram Stain - Final TEST NOT PERFORMED 12/31/17 06:47 Other: Please Indicate Mycobacterial Culture - Preliminary 12/29/17 06:00 Sputum Gram Stain - Final 12/29/17 06:00 Sputum Sputum Culture - Final NORMAL ORAL LIZETT 12/30/17 11:15 Other: Please Indicate Mycobacterial Culture - Preliminary 12/29/17 06:00 Other: Please Indicate Mycobacterial Culture - Preliminary Most Recent Lab Values WBC 6.3 K/uL (4.8-10.8) 01/06/18 07:57 RBC 5.07 Mil/uL (4.40-5.90) 01/06/18 07:57 Hgb 15.4 g/dL (12.0-18.0) 01/06/18 07:57 Hct 44.3 % (35.0-51.0) 01/06/18 07:57 MCV 87.4 fL (80.0-94.0) 01/06/18 07:57 MCH 30.3 pg (27.0-31.0) 01/06/18 07:57 MCHC 34.7 g/dL (33.0-37.0) 01/06/18 07:57 RDW 12.0 % (11.5-14.5) 01/06/18 07:57 Plt Count 428 K/uL (130-400) H 01/06/18 07:57 MPV 7.2 fL (7.2-11.7) 01/06/18 07:57 Neut % (Auto) 66.6 % (50.0-75.0) 01/06/18 07:57 Lymph % (Auto) 16.2 % (20.0-40.0) L 01/06/18 07:57 [place] % (Auto) 9.2 % (0.0-10.0) 01/06/18 07:57 Eos % (Auto) 7.0 % (0.0-4.0) H 01/06/18 07:57 Baso % (Auto) 1.0 % (0.0-2.0) 01/06/18 07:57 Neut # (Auto) 4.2 K/uL (1.8-7.0) 01/06/18 07:57 Lymph # (Auto) 1.0 K/uL (1.0-4.3) 01/06/18 07:57 [place] # (Auto) 0.6 K/uL (0.0-0.8) 01/06/18 07:57 Eos # (Auto) 0.4 K/uL (0.0-0.7) 01/06/18 07:57 Baso # (Auto) 0.1 K/uL (0.0-0.2) 01/06/18 07:57 Neutrophils % (Manual) 67 % (50-75) 01/02/18 08:19 Lymphocytes % (Manual) 10 % (20-40) L 01/02/18 08:19 Reactive Lymphs % 1 % (0-0) H 12/31/17 07:55 Monocytes % (Manual) 17 % (0-10) H 01/02/18 08:19 Eosinophils % (Manual) 5 % (0-4) H 01/02/18 08:19 Basophils % (Manual) 1 % (0-2) 01/02/18 08:19 Platelet Estimate Normal (NORMAL) 01/02/18 08:19 Giant Platelets Present 12/29/17 12:54 RBC Morphology Normal 12/31/17 07:55 Anisocytosis (manual) Slight 01/02/18 08:19 Sodium 138 mmol/L (132-148) 01/06/18 07:57 Potassium 3.8 mmol/L (3.6-5.2) 01/06/18 07:57 Chloride 101 mmol/L (98-107) 01/06/18 07:57 Carbon Dioxide 26 mmol/L (22-30) 01/06/18 07:57 Anion Gap 15 (10-20) 01/06/18 07:57 BUN 13 mg/dL (9-20) 01/06/18 07:57 Creatinine 1.0 mg/dL (0.8-1.5) 01/06/18 07:57 Est GFR ( Amer) > 60 01/06/18 07:57 Est GFR (Non-Af Amer) > 60 01/06/18 07:57 Random Glucose 82 mg/dL (75-110) 01/06/18 07:57 Lactic Acid 1.0 mmol/L (0.7-2.1) 12/29/17 12:57 Calcium 9.2 mg/dl (8.6-10.4) 01/06/18 07:57 Magnesium 2.0 mg/dL (1.6-2.3) 01/06/18 07:57 Total Bilirubin 0.3 mg/dL (0.2-1.3) 01/06/18 07:57 AST 31 U/L (17-59) 01/06/18 07:57 ALT 16 U/L (21-72) L 01/06/18 07:57 Alkaline Phosphatase 66 U/L (38-126) 01/06/18 07:57 Total Protein 7.1 g/dL (6.3-8.3) 01/06/18 07:57 Albumin 3.6 g/dL (3.5-5.0) 01/06/18 07:57 Globulin 3.5 gm/dL (2.2-3.9) 01/06/18 07:57 Albumin/Globulin Ratio 1.0 (1.0-2.1) 01/06/18 07:57 Urine Color Yellow (YELLOW) 12/29/17 13:25 Urine Clarity Clear (Clear) 12/29/17 13:25 Urine pH 6.0 (5.0-8.0) 12/29/17 13:25 Ur Specific [place] 1.029 (1.003-1.030) 12/29/17 13:25 Urine Protein 1+ mg/dL (NEGATIVE) H 12/29/17 13:25 Urine Glucose (UA) Normal mg/dL (Normal) 12/29/17 13:25 Urine Ketones Negative mg/dL (NEGATIVE) 12/29/17 13:25 Urine Blood Negative (NEGATIVE) 12/29/17 13:25 Urine Nitrate Negative (NEGATIVE) 12/29/17 13:25 Urine Bilirubin Negative (NEGATIVE) 12/29/17 13:25 Urine Urobilinogen 4.0 mg/dL (0.2-1.0) 12/29/17 13:25 Ur Leukocyte Esterase Neg Li/uL (Negative) 12/29/17 13:25 Urine WBC (Auto) 1 /hpf (0-5) 12/29/17 13:25 Urine RBC (Auto) 7 /hpf (0-3) H 12/29/17 13:25 Hepatitis A IgM Ab Negative (NEGATIVE) 12/30/17 14:10 Hep Bs Antigen Negative (NEGATIVE) 12/30/17 14:10 Hep B Core IgM Ab Negative (NEGATIVE) 12/30/17 14:10 Hepatitis C Antibody Negative (NEGATIVE) 12/30/17 14:10 HIV 1&2 Ag/Ab, 4th Gen Nonreactive (Nonreactive) 12/30/17 14:10 HIV 1&2 Antibody Screen Negative (NEGATIVE) 12/29/17 15:49 Influenza Typ A,B (EIA) Negative for flu a/b (NEGATIVE) 12/29/17 14:51 - Hospital Course Hospital Course: Upon Admission: This is a 32 year old male originally from [facility] with PMHx duodenal ulcer with H. pylori infection who presented complaining of hemoptysis. Patient stated that this began on Friday of last week. He came to the emergency room today because he noticed significantly more blood in his sputum. The cough worsens towards the end of the day and is also worsened after drinking cold beverages. He has not tried any medications for his cough. Patient has also began experiencing night sweats last night. He denies any recent travels stating that after he arrived in 2016, he has not been outside of the [place] since then. Patient intially denied sick contacts, but then stated that some people at his workplace have occasionally had a cold. Per patient, his co- workers were not experiencing similar symptoms as he is currently. Of note, patient has stopped taking Aspirin or NSAIDs ever since the previous hospitalization for GI bleed. Patient denies fevers, chills, weight changes, chest pain, dyspnea, abdominal pain, or dysuria at this time. Hospital Course: Pt admitted to hospital on droplet isolation 12/29/17 to r/o TB due to hemoptysis and RUL cavitary lesion seen on CXR. Likewise, chest CT showed patchy infiltrate of posterior segment of RUL with eccentric cavitary lesions appearing to exhibit air-fluid level. PPD was placed on right forearm on admission and was read as equivocal. Pt started on Azithromycin 500 mg IV daily and Ceftriaxone 1 gm IV daily. Blood cultures, sputum cultures collected on were negative. Dr. Luis (ID) saw pt on 12/30/17 and recommended HIV panel due to suspicion as well as holding off on TB meds unless AFB found positive or AFB found negative with positive Quanitferon. HIV 4th generation panel was negative. AFB sputum cultures on 12/29/17, 12/30/17 and 12/31/17 were all negative. On 12/31/17 Dr. Luis recommended pt go to chest clinic for RIPE therapy until completion of cultures in 6 weeks. F/u CXR 01/02/18 showed persistent but improved patchy infiltrate seen at R lung apex and upper L lung associated with prominent central cavitation. RIPE therapy started on 01/03/18. Pt will be D/C to TB/Chest Clinic 01/06/18 following morning dose of RIPE therapy. Patient stable for discharge to chest clinic per Dr. Spicer and Dr. Luis. Patient was discharged with TB medications and antibiotic for other cuases of lung lesion. Please note that this is a summary of events. For more details please see complete medical record. Discharge Exam - Head Exam Head Exam: ATRAUMATIC, NORMAL INSPECTION, NORMOCEPHALIC - Eye Exam Eye Exam: EOMI, Normal appearance, PERRL Pupil Exam: NORMAL ACCOMODATION, PERRL - Respiratory Exam Respiratory Exam: Clear to PA & Lateral, NORMAL BREATHING PATTERN, UNREMARKABLE - Cardiovascular Exam Cardiovascular Exam: REGULAR RHYTHM, +S1, +S2 - GI/Abdominal Exam GI & Abdominal Exam: Normal Bowel Sounds, Unremarkable - Neurological Exam Neurological exam: Alert, Oriented x3 - Psychiatric Exam Psychiatric exam: Normal Affect, Normal Mood - Skin Skin Exam: Dry, Intact, Normal Color, Warm Discharge Plan - Discharge Medications Prescriptions: Amoxicillin 875 mg PO BID #14 tablet Ethambutol [Myambutol] 1,200 mg PO DAILY #30 tab Isoniazid [Niazid] 300 mg PO DAILY #30 tab Pyrazinamide 1,000 mg PO DAILY #30 tab rifAMPin [Rifampin Cap] 600 mg PO DAILY #30 cap Thiamine [Vitamin B1 Tab] 100 mg PO DAILY #30 tab - Follow Up Plan Condition: GOOD Disposition: HOME/ ROUTINE Instructions: Tuberculosis, Coughing up Blood, Amoxicillin and Clavulanate, Ethambutol, Isoniazid, Rifampin, Isoniazid, and Pyrazinamide, Thiamine Additional Instructions: Please follow up with the Chest Clinic for TB treatment until AFB cultures result. Please also take Amoxacillin twice a day for 2 weeks.
[2018-01-07 01:51] LABS: TB ANTIGEN MINUS NIL 0.01 IU/mL
== END 2018-01-06 13:24 | disposition home or self-care (01) | DRG 801 ==
LOC: C.ER 10:55 → C.9E 13:38 → C.5S 16:17
PROVIDERS: ADMIT Hospitalist; ATTEND Hospitalist
DX: A15.0 Tuberculosis of lung (principal); Z87.11 Personal history of peptic ulcer disease; J18.9 Pneumonia, unspecified organism